=== PATIENT | female | born 1960 ===

== ENCOUNTER 2016-10-17 10:17 | Inpatient (IN) ==
[2016-10-17] MEDS ORDERED: ACETAMINOPHEN 325 MG TABLET PO PRN (11:08)
[2016-10-17] MEDS ORDERED: ONDANSETRON 4 MG/2 ML VIAL IV PRN (11:08)
[2016-10-17] MEDS ORDERED: GLUCAGON 1 MG VIAL IM PRN (11:08)
[2016-10-17] MEDS ORDERED: DEXTROSE 50% 25 GM/50 ML VIAL IV PRN (11:08)
--- NOTE | 2016-10-17 11:41 | EKG Report ---
Stationary ECG Study [facility] Test Date: 10/17/2016 11:41:15 AM Pat Name: DAVIN OLSON Department: Room: 533 Gender: F [employer] Supervisor: BRANDIE : 1960 Requested by: Kylee Fritz Order Number: [id number] Reading MD: SUDHEER BAUTISTA Intervals [place] Rate: 92 P: 59 NC: 166 QRS: 32 QRSD: 99 T: 47 QT: 361 QTc: 410 Interpretive Statements SINUS RHYTHM Electronically Signed On 10-17-16 11:46:46 CDT by SUDHEER BAUTISTA [email or web address]
[2016-10-17 12:01] LABS: Basophils # 0.1 10*3/uL (0.0-0.2); Basophils % 0.6 % (0.0-0.8); Eosinophils # 0.2 10*3/uL (0.0-0.87); Hemoglobin 7.7 GM/DL (12.0-16.0); Immature Granulocytes % 1.6 %; Immature Granulocytes Absolute 0.13 #; Lymphocytes # 1.5 10*3/uL (1.4-4.0); Lymphocytes % 19.3 % (21.3-54.2); Mean Corpuscular HGB Conc 30.8 GM/DL (32-36); Mean Corpuscular Hemoglobin 29 PG (27-34); Mean Corpuscular Volume 94.7 FL (87-102); Mean Platelet Volume 10.1 FL (9.6-12.0); Monocytes # 0.6 10*3/uL (0.11-0.8); Monocytes % 7.4 % (1.7-12.7); Neutrophils # 5.4 10*3/uL (1.4-7.4); Neutrophils % 69.1 % (38.7-73.9); Platelet Count 233 T/CUMM (130-400); Red Blood Count 2.64 MC/CUMM (3.8-5.5); White Blood Count 7.9 T/CUMM (4-12)
[2016-10-17 12:24] LABS: Albumin 2.1 G/DL (3.4-5.0); Bilirubin,Total 0.5 MG/DL (0.2-1.0); Calcium 8.5 MG/DL (8.5-10.1); Osmolality,Calculated 272.1 MOS/KG (273-304); Potassium 4.9 MMOL/L (3.5-5.1)
[2016-10-17] MEDS: INSULIN REGULAR 100 UNIT/ML SUBCUT SCH ×3 (12:26→21:01)
--- NOTE | 2016-10-17 12:56 | General Surg History&Physical ---
Assessment and Plan - Time spent with patient Time spent with patient: Greater than 30 minutes (1) Abscess of right thigh Status: Acute Assessment and plan: Begin IV antibiotics, wound care, and surgery tomorrow to drain/debride/culture. Current Visit: Yes (2) Abscess of left thigh Status: Acute Assessment and plan: IV antibiotics, debridement, drainage, wound care. Current Visit: Yes (3) Diabetic ulcer of heel Status: Acute Assessment and plan: Debridement, culture, and wound care; good diabetes management and offloading. She has left sided weakness from old CVA, so we will need to protect from trauma and pressure changes. Current Visit: Yes (4) Diabetic foot ulcer Status: Acute Current Visit: Yes (5) Hemodialysis status Status: Acute Assessment and plan: Fairly recent progression to HD. She dialyzes in [place]. We will ask nephrology here to follow with us perioperatively. Current Visit: Yes (6) Left-sided weakness Status: Acute Assessment and plan: Residual weakness from old CVA. We will need to prevent pressure changes, protect these areas, and fall prevention. PT/OT as tolerated. Current Visit: Yes History of Present Illness Chief complaint: Infected wounds of right and left thighs and left foot History of present illness: Ms. Rowland is a 55 year old female Allergies Allergy/AdvReac Type Severity Reaction Status Date / Time moxifloxacin AdvReac Severe ITCHING Verified 10/17/16 12:01 Medical,Surgical,& Family Hx - Medical History Cardio: History of: Cerebrovascular Disease, PVD, Cardiovascular Problems (low blood pressure) Neurology: History of: Cerebrovascular Accident, Peripheral Neuropathy Endocrine: History of: Diabetes Mellitus (IDDM) Renal: History of: Dialysis, Renal Failure Genitourinary: History of: Bladder Problem (incontinence) Musculoskeletal: History of: Musculoskeletal Problems (paralysis related to stroke) Other: History of: Skin Problems (chronic wounds) - Surgical History Cardiac Surgeries: Sugical HX of: Vascular Access Devices (Currently has subclavian dialysis catheters ) Thoracic Surgeries: Patient denies;: Organ Transplant - Social History Smoking Status: Never smoker Frequency of Alcohol Use: None Type of Drug Use: None Functional capacity: wheelchair bound Exam - Constitutional Vitals: Period Temp Pulse Resp BP Sys/English Pulse Ox Last 24 Hr 97.4 F 94 18 99/58 96 General appearance: no acute distress, over weight, disheveled - Head Head exam: Present: normocephalic - ENT Mouth exam: Present: normal voice, dry mucosa, other (Poor dentition) - Neck Neck exam: Present: trachea midline - Respiratory Respiratory exam: Present: clear to auscultation bilaterally - Cardiovascular Cardiovascular exam: Present: RRR - GI/Abdominal GI/Abdominal exam: Present: soft. Absent: guarding, tenderness - Extremities Exam Extremities exam: Present: other (Multiple contusions, superficial skin lesions and scabs of upper and lower extremities. Trace edema bilateral lower extremities. On the right inner thigh is a 15 x 10cm area of induration and erythema, with an 8 x 5cm ulceration present. The upper 2/3 has beefy friable granulation tissue present with foul odor and copious yellow drainage; the lower 1/3 has a fixed thick black eschar that is tender to touch. Some suture material is present centrally. There is contraction from the wound edges. It is extremely tender to touch but I can express no purulence nor do I see a specifice fluctuant mass. On the left inner thigh is a small, 1x1cm wound with Iodoform packing present; there is foul yellow drainge present. When removed, the wound has at least a 5cm cavity present. I can express no further drainage and see no necrotic material. It is too tender for her to allow me to explore this area. On the left lower extremity is a 3 x 4cm fixed dark heel eschar. No drainage is seen. At the left midfoot is a purpuric blistered area with adjacent 2x2cm ulceration some yellowish drainage present. She has chronic venous stasis skin changes of the lower extremities bilaterally. There is 1-2+ palpable DP pulses but deeply prominenent dependent rubor. ) - Neurological Exam Neurological exam: Present: alert, oriented X3, motor sensory deficit (Residual left sided weakness, abnormal sensory response, and delayed reflexes secondary to old CVA.) 12 point system: reviewed and no additional remarkable complaints except as stated - Constitutional Constitutional: Present: weakness, weight loss Hematologic/Lymphatic: Present: easy bruising (Since starting dialysis) Quality Measures - VTE Contraindication to Pharmacological VTE Prophylaxis: High Risk of Bleeding Results - Labs CBC & BMP: 10/17/16 11:37 10/17/16 11:37 Lab Results: I have reviewed the past 24 hour labs (H&H noted. Creatinine is 3.0 today; she is scheduled for dialysis on Friday. Potassium is normal.)
--- NOTE | 2016-10-17 15:10 | Nephrology Consult Note ---
History of Present Illness Chief complaint: End-stage renal disease History of present illness: Ms. Rowland is a 55 year old female who has been dialyzing approximately 1-1/2 months in the [place] hemodialysis unit. She is a long-standing diabetic and that is apparently the etiology of her end-stage renal disease. She has had outpatient care for left foot wound which is been chronic and has developed significant ulceration and wounds of both inner thighs. Plan is for debridement of those wounds tomorrow. Hematocrit is 25. She is not short of breath her chest is clear and her heart without rub or gallop. Her right chest dialysis catheter is not draining and exits the infraclavicular position. She is wearing boots over both feet and has no significant edema Impression end-stage renal disease #2 wounds #3 diabetes mellitus Plan: Hemodialysis tomorrow after surgery. If necessary we can transfuse packed red cells. We will go ahead and type and screen for those. Allergies Allergy/AdvReac Type Severity Reaction Status Date / Time moxifloxacin AdvReac Severe ITCHING Verified 10/17/16 12:01 Medical,Surgical,& Family Hx - Medical History Cardio: History of: Cerebrovascular Disease, PVD, Cardiovascular Problems (low blood pressure) Neurology: History of: Cerebrovascular Accident, Peripheral Neuropathy Endocrine: History of: Diabetes Mellitus (IDDM) Renal: History of: Dialysis, Renal Failure Genitourinary: History of: Bladder Problem (incontinence) Musculoskeletal: History of: Musculoskeletal Problems (paralysis related to stroke) Other: History of: Skin Problems (chronic wounds) - Surgical History Cardiac Surgeries: Sugical HX of: Vascular Access Devices (Currently has subclavian dialysis catheters ) Thoracic Surgeries: Patient denies;: Organ Transplant - Social History Smoking Status: Never smoker Frequency of Alcohol Use: None Type of Drug Use: None Review of Systems 12 point system: reviewed and no additional remarkable complaints except as stated Exam - Vital Signs Vital signs: Period Temp Pulse Resp BP Sys/English Pulse Ox Last 24 Hr 97.4 F 94 18 99/58 96 - General Appearance General appearance: well-developed, well-nourished, appears started age EENT: ATNC Neck: no JVD, no thyromegaly, no carotid bruit, supple Respiratory: no kyphosis, no scoliosis Cardiology: no murmurs, no rub, no gallops, no edema, regular rate, regular rhythm, normal S1, normal S2 Gastrointestinal: normoactive bowel sounds Integumentary: no rash, warm and dry Neurologic: no focal deficit, no asterixis, alert and oriented x3, reflexes 2+ and symmetric, gait normal, strength 5/5 Musculoskeletal: no deformities, no erythema, no cyanosis, no clubbing Psychiatric: mood/affect appropriate (Wounds as described in H&P. Dialysis cath R infraclavicular area), cooperative Results - Labs CBC & BMP: 10/17/16 11:37 10/17/16 11:37 Lab Results: I have reviewed the past 24 hour labs Assessment and Plan - Time spent with patient Time spent with patient: Greater than 30 minutes (1) ESRD (end stage renal disease) on dialysis Status: Acute Current Visit: Yes (2) Diabetic foot ulcer Status: Acute Current Visit: Yes (3) Anemia Status: Acute Assessment and plan: Type and screen. Transfuse on dialysis if necessary Current Visit: Yes Specialty Discharge - Follow Up or Referrals - Speciality Discharge Instructions Nephrology Instructions: Hemodialysis tomorrow.
[2016-10-17] MEDS: DESITIN 4OZ/NYSTATIN 15 GRAM MIXTURE PASTE TOP SCH (21:01)
[2016-10-18] MEDS ORDERED: ceFAZolin 1,000 MG VIAL IM ONE (06:00)
[2016-10-18] MEDS: INSULIN REGULAR 100 UNIT/ML SUBCUT SCH ×4 (07:19→21:48)
[2016-10-18] MEDS: PANTOPRAZOLE 40 MG TABLET PO SCH (08:05)
[2016-10-18] MEDS: DESITIN 4OZ/NYSTATIN 15 GRAM MIXTURE PASTE TOP SCH ×2 (08:05→21:49)
[2016-10-18] MEDS ORDERED: SODIUM CHLORIDE 0.9% 250 ML IV PRN (08:56)
--- NOTE | 2016-10-18 08:56 | Nephrology Progress Note ---
Nephrology - PN: Subj Interval history: Ms. Rowland is seen in follow-up of her end-stage renal disease. She is to undergo debridement of several wounds today and will have dialysis afterwards. Her hematocrit is 25 and there will be expected blood loss. We will plan to give 2 units packed red cells during hemodialysis. Chest is clear and she is in no distress. Exam (PN)-Nephrology - Vital Signs Vital signs: Period Temp Pulse Resp BP Sys/English Pulse Ox Last 24 Hr 97.3 F-98.9 F 90-94 16-18 94-116/58-69 93-100 - Lab 10/17/16 11:37 10/17/16 11:37 Most recent lab results Calcium 8.5 MG/DL (8.5-10.1) 10/17/16 11:37 Assessment and Plan (1) ESRD (end stage renal disease) on dialysis Status: Acute Current Visit: Yes (2) Diabetic foot ulcer Status: Acute Current Visit: Yes (3) Anemia Status: Acute Assessment and plan: Type and screen. Transfuse on dialysis if necessary Current Visit: Yes
[2016-10-18] MEDS ORDERED: DEXTROSE 50% 25 GM/50 ML VIAL IV ONE ×2 (11:40→11:55)
[2016-10-18] MEDS ORDERED: BUPIVACAINE 0.25% 50 ML VIAL ONE (11:47)
[2016-10-18] MEDS ORDERED: PROPOFOL 200 MG/20 ML VIAL IV ONE (12:05)
[2016-10-18] MEDS ORDERED: PHENYLEPHRINE 20 MG/250 ML PREMIX IV ONE (12:05)
[2016-10-18] MEDS ORDERED: LIDOCAINE 2% 5 ML VIAL ONE (12:05)
--- NOTE | 2016-10-18 13:05 | Operative Note ---
Date of procedure: 10/18/16 Pre-op diagnosis: Diabetic ulcerations right and left lower extremities Post-op diagnosis: same Procedure: Operative note: Preoperative diagnosis: 1. Diabetic ulceration right medial thigh 2. Diabetic ulceration left medial thigh 3. Diabetic ulceration fifth metatarsal head lateral part of the left foot 4. Diabetic ulceration of the heel left 5. Diabetic ulceration plantar surface left foot Postoperative diagnosis: Same Procedure: 1. Excisional debridement skin subcutaneous tissue right medial thigh 2. Excisional debridement of skin subcutaneous tissue left medial thigh 3. Excisional debridement of skin subcutaneous tissue ulcer fifth metatarsal head lateral left foot 4. Excisional debridement of skin subcutaneous tissue left heel 5. Excisional debridement of skin subcutaneous tissue ulcer plantar surface left foot Surgeon Dr. Ramos Manager [employer] Kylee Fritz, [employer]ANDW[employer] MACHINE OPERATOR ACNP Anesthesia was managed anesthetic care with local infiltration Brief history: 55-year-old diabetic female dialysis patient with multiple wounds on the lower extremities with dark eschars and drainage from these wound beds. We brought her in for some IV antibiotics and taken to surgery to get these debrided so we can start some proper wound care. Procedure: With patient in supine position prepped and draped in a sterile fashion timeout and antibiotics completed we then took several pre-debridement measurements. 1. The right thigh 6 x 7 x 0.5 cm. 2. Left thigh 1 x 0.5 x 0.5 cm. 3. Left lateral foot fifth metatarsal head 1 x 1 cm. 4. Left heel 3.5 x 4 cm. 5. Left foot plantar surface 2 x 3 cm. At this point I began to approach the area after we infiltrated everything with a local anesthetic the right thigh wound itself. Good bit of necrotic tissue in the lower edge of it at this time. I took the knife begin to debride this dark eschar away along with the skin edge and some of the deep subcutaneous tissue. We debrided the deep tissue at this point with scissors to take tissue for culture. We encountered a couple of veins that had clot in on that when pressed on the thigh would evacuate the clots. Once they were out I went ahead and oversewed these 3 vein areas with 3-0 Vicryl suture in order to keep any backbleeding from occurring. Once I had debrided this wound pretty thoroughly with a good clean base at this time we now have a post debridement wound 6.5 x 7.2 x 1.5 cm in size. Next moved to the left thigh wound which has some tunneling underneath it. We placed a hemostat into that and opened it up so that we can get to it and drops into the subtenons tissue area. We took a knife and excised the edges of this and carefully debrided all around to get this tract completely out. We took some deep tissue from this for cultures. We then debrided some deep subcutaneous tissue and utilized cauterization controlling bleeding. Washed and irrigated without any problems. Once that was completed we have a post debridement wound that is 3.3 x 1.2 x 7 cm. At that point we dressed it area. That being completed we went down to the left foot at this point went to the fifth metatarsal head that lateral aspect where we took the knife and excised the eschar that was present there. Some bursal material was present in this area we debrided that away with some drainage from it. We carefully debrided the skin edges and the subcutaneous tissue from around this wound edge. Once we had finished we had a wound that is 1 x 1 x 0.2 cm. We next moved to the plantar surface of the foot where we took the knife and shave that plantar ulcer of the dark eschar away debriding skin and deep subcutaneous tissue without exposing any tendon or fascia at this time. Took the scissors to clean up some of the fatty tissue from his age. Once that was completed we have a wound now that is 3 x 4 x 0.4 cm. That being completed we move next to the heel where we had to elevate the leg and take a knife and carefully debride this dark necrotic eschar away trying not to expose any tendon at this time debriding the skin and the deep subtenons tissue. We debrided as best we could because it is hard to see the like we got most of it from his age. We now have a wound that 7 x 6 x 0.9 cm. At this point would begin to worsen irrigate up the wound beds and dressed some mild using the Aquacel Ag and Mepitel as well as little Surgicel insert wound to controlling bleeding at this time. Bulky dressings were placed on the thigh wounds and the foot was wrapped with cast padding Covan to the knee. Patient was next taken to recovery. Estimated blood loss 20 cc Sponge count correct 2 Drains none Complications none Condition stable satisfactory Anesthesia: MAC, local (0.25% Marcaine plain mixed [id number] 1% Xylocaine plain) Surgeon / Physician: Frederick Ramos Manager [employer]: Kylee Fritz Estimated blood loss: other (20 cc) Specimens: other (Tissue for culture) Condition: stable Disposition: floor Results - Labs CBC & BMP: 10/17/16 11:37 10/17/16 11:37 Discharge Plan - Discharge Medications No Action traMADol TAB [Ultram] 50 mg PO BID PRN PRN Reason: Pain Folic Acid/Vit B Complex and C [Folbee Plus Tablet] 5 mg PO DAILY Insulin Lispro [HumaLOG] See Protocol SUBCUT TID W/MEALS Amitriptyline [Elavil] 50 mg PO BID Oxycodone HCl/Acetaminophen [Percocet 10-325 mg Tablet] 1 each PO Q4H PRN PRN Reason: Pain Levothyroxine Tab [Synthroid Tab] 50 mcg PO DAILY@0700 Amiodarone Tab [Cordarone Tab] 200 mg PO BID - Follow Up or Referral - Forms/Instructions
[2016-10-18] MEDS ORDERED: HYDROmorphone 2 MG/1 ML VIAL IV PRN (13:06)
[2016-10-18] MEDS: HYDROmorphone 2 MG/1 ML VIAL IV PRN ×2 (13:15→13:20)
--- NOTE | 2016-10-18 13:15 | Anesthesia Post-Op ---
Anesthesia Post OP - Post Ansesthetic Evaluation Patient seen in post op: Yes Resp: within normal limits CV: within normal limits Mental: within normal limits Temp: within normal limits [id number]: within normal limits Nausea and Vomiting: within normal limits Pain: within normal limits
[2016-10-18] MEDS ORDERED: ONDANSETRON 4 MG/2 ML VIAL IV PRN (13:18)
[2016-10-18] MEDS ORDERED: MIDAZOLAM 2 MG/2 ML VIAL ONE (13:18)
[2016-10-18] MEDS ORDERED: HEPARIN 10,000 UNIT/10 ML VIAL IV SCH (14:30)
[2016-10-18] MEDS: INSULIN LISPRO 100 UNIT/ML SUBCUT SCH (16:05)
[2016-10-18] MEDS: CLINDAMYCIN INJ 600 MG in PREMIX 1 EACH IV SCH (17:28)
[2016-10-18 20:08] LABS: Hematocrit 26.2 VOL% (35.7-47.0); Hemoglobin 8.4 GM/DL (12.0-16.0)
[2016-10-18] MEDS: AMITRIPTYLINE 50 MG TABLET PO SCH (21:48)
[2016-10-18] MEDS: ceFAZolin 2,000 MG in PREMIX 1 EACH IV SCH (21:49)
[2016-10-18] MEDS: AMIODARONE 200 MG TABLET PO SCH (21:49)
[2016-10-19] MEDS: CLINDAMYCIN INJ 600 MG in PREMIX 1 EACH IV SCH ×4 (01:20→22:28)
[2016-10-19] MEDS: ceFAZolin 2,000 MG in PREMIX 1 EACH IV SCH (03:00)
[2016-10-19 05:05] LABS: Basophils % 0.6 % (0.0-0.8); Eosinophils # 0.1 10*3/uL (0.0-0.87); Eosinophils % 2.7 % (0.00-10.9); Hematocrit 23.2 VOL% (35.7-47.0); Hemoglobin 7.6 GM/DL (12.0-16.0); Immature Granulocytes Absolute 0.05 #; Lymphocytes # 1.4 10*3/uL (1.4-4.0); Mean Corpuscular HGB Conc 32.8 GM/DL (32-36); Mean Corpuscular Hemoglobin 30 PG (27-34); Mean Corpuscular Volume 89.9 FL (87-102); Mean Platelet Volume 10.3 FL (9.6-12.0); Monocytes # 0.5 10*3/uL (0.11-0.8); Monocytes % 9.5 % (1.7-12.7); Neutrophils # 3.2 10*3/uL (1.4-7.4); Neutrophils % 60.2 % (38.7-73.9); Platelet Count 178 T/CUMM (130-400); Red Blood Count 2.58 MC/CUMM (3.8-5.5); Red Cell Distribution Width 15.7 % (9.3-17.3); White Blood Count 5.2 T/CUMM (4-12)
[2016-10-19 05:36] LABS: Calcium 7.9 MG/DL (8.5-10.1); Osmolality,Calculated 266.4 MOS/KG (273-304); Potassium 4.5 MMOL/L (3.5-5.1)
[2016-10-19] MEDS: LEVOTHYROXINE 50 MCG TABLET PO SCH (06:04)
[2016-10-19] MEDS: INSULIN REGULAR 100 UNIT/ML SUBCUT SCH ×4 (07:55→20:22)
[2016-10-19] MEDS: INSULIN LISPRO 100 UNIT/ML SUBCUT SCH ×3 (08:01→16:42)
[2016-10-19] MEDS: MULTIVITAMIN (BEROCCA) TABLET PO SCH (08:02)
[2016-10-19] MEDS: AMIODARONE 200 MG TABLET PO SCH ×2 (08:02→20:19)
[2016-10-19] MEDS: PANTOPRAZOLE 40 MG TABLET PO SCH (08:02)
[2016-10-19] MEDS: AMITRIPTYLINE 50 MG TABLET PO SCH ×2 (08:02→20:18)
[2016-10-19] MEDS: DESITIN 4OZ/NYSTATIN 15 GRAM MIXTURE PASTE TOP SCH ×2 (08:04→20:19)
[2016-10-19 08:31] LABS: Hematocrit 25.3 VOL% (35.7-47.0); Hemoglobin 8.1 GM/DL (12.0-16.0)
[2016-10-19] MEDS ORDERED: SKIN HEALING OINT (AQUAPHOR) 50 GM TUBE TOP PRN (11:13)
--- NOTE | 2016-10-19 11:41 | Event Note ---
General Surgery Progress Note Chief complaint This patient is a 55-year-old woman admitted with multiple wounds that were treated with debridement and drainage of abscesses by Dr. Brunson on 10/18/2016 Interval history No events overnight. Patient feels well. Initial cultures show gram-negative rods. Physical exam Afebrile with normal vital signs Right thigh wound has some erythema around the blanches and it still indurated. The base of the wound has some sloughing tissue and does not have any red granulation tissue. The left thigh wound looks much more red and healthy with no residual infection. The left foot wound is healing well. Labs Reviewed Imaging None Assessment and plan Continue antibiotics and wound care
[2016-10-19] MEDS: COLLAGENASE OINT 30 GM TUBE TOP SCH (12:36)
[2016-10-19] MEDS: BACITRACIN OINT 0.9 GM PACK TOP SCH (12:36)
[2016-10-19] MEDS: SODIUM HYPOCHLORITE 0.25% IRRIG 473 ML BOTTLE TOP SCH (12:36)
--- NOTE | 2016-10-19 14:57 | Nephrology Progress Note ---
Nephrology - PN: Subj Interval history: She denies shortness of breath or chest pain. No GI symptoms. Exam (PN)-Nephrology - Vital Signs Vital signs: Period Temp Pulse Resp BP Sys/English Pulse Ox Last 24 Hr 97.0 F-99.0 F 87-103 18-20 95-115/50-64 95-100 Exam: ENT: Normal Cardiovascular: Regular rate and rhythm. No murmur rub or gallop Lungs: Clear Extremities: 1+ edema - Lab 10/19/16 08:12 10/19/16 04:02 Most recent lab results Calcium 7.9 MG/DL (8.5-10.1) L 10/19/16 04:02 Assessment and Plan (1) ESRD (end stage renal disease) on dialysis Status: Acute Assessment and plan: 55-year-old woman with: * ESRD. Dialyzed yesterday * Diabetes mellitus * Wound. Managed by surgery Current Visit: Yes (2) Diabetes mellitus Status: Acute Current Visit: Yes (3) Abscess of left thigh Status: Acute Current Visit: Yes (4) Abscess of right thigh Status: Acute Current Visit: Yes
[2016-10-19] MEDS: CIPROFLOXACIN 500 MG TABLET PO SCH (20:18)
[2016-10-19] MEDS: CLINDAMYCIN 300 MG CAPSULE PO SCH ×2 (20:21→21:20)
[2016-10-19] MEDS ORDERED: CLINDAMYCIN 300 MG CAPSULE PO SCH (21:00)
[2016-10-20] MEDS: LEVOTHYROXINE 50 MCG TABLET PO SCH (06:04)
[2016-10-20] MEDS: CLINDAMYCIN 300 MG CAPSULE PO SCH ×3 (06:06→22:42)
[2016-10-20] MEDS: INSULIN REGULAR 100 UNIT/ML SUBCUT SCH ×4 (07:28→20:19)
[2016-10-20] MEDS: INSULIN LISPRO 100 UNIT/ML SUBCUT SCH ×3 (07:28→16:25)
[2016-10-20] MEDS: BACITRACIN OINT 0.9 GM PACK TOP SCH ×2 (07:29→08:09)
[2016-10-20] MEDS: MULTIVITAMIN (BEROCCA) TABLET PO SCH ×2 (07:29→08:09)
[2016-10-20] MEDS: AMITRIPTYLINE 50 MG TABLET PO SCH ×3 (07:29→20:18)
[2016-10-20] MEDS: PANTOPRAZOLE 40 MG TABLET PO SCH ×2 (07:30→08:09)
[2016-10-20] MEDS: AMIODARONE 200 MG TABLET PO SCH ×3 (07:30→20:19)
[2016-10-20] MEDS: CIPROFLOXACIN 500 MG TABLET PO SCH ×2 (08:09→20:18)
[2016-10-20] MEDS: DESITIN 4OZ/NYSTATIN 15 GRAM MIXTURE PASTE TOP SCH ×2 (08:09→21:13)
[2016-10-20] MEDS: SODIUM HYPOCHLORITE 0.25% IRRIG 473 ML BOTTLE TOP SCH (08:09)
[2016-10-20] MEDS: COLLAGENASE OINT 30 GM TUBE TOP SCH (08:10)
--- NOTE | 2016-10-20 12:23 | Event Note ---
General Surgery Progress Note Chief complaint This patient is a 55-year-old woman admitted with multiple wounds that were treated with debridement and drainage of abscesses by Dr. Ramos on 10/18/2016 Interval history No events overnight. Patient feels well. Cultures have grown Pseudomonas and E. coli both of which are sensitive to ciprofloxacin. Physical exam Afebrile with normal vital signs Right thigh wound has some erythema around the blanches and it still indurated. The base of the wound has some sloughing tissue and does not have any red granulation tissue. The left thigh wound looks much more red and healthy with no residual infection. The left foot wound has a little bit more sloughing tissue again today. Labs Reviewed Imaging None Assessment and plan Continue current antibiotics and wound care
--- NOTE | 2016-10-20 14:21 | Nephrology Progress Note ---
Nephrology - PN: Subj Interval history: No new symptoms today. Exam (PN)-Nephrology - Vital Signs Vital signs: Period Temp Pulse Resp BP Sys/English Pulse Ox Last 24 Hr 97.5 F-98.7 F 84-94 12-19 123-131/61-77 94-98 Exam: ENT: Normal Cardiovascular: Regular rate and rhythm. No murmur rub or gallop Lungs: Clear Extremities: 1+ edema - Lab 10/19/16 08:12 10/19/16 04:02 Most recent lab results Calcium 7.9 MG/DL (8.5-10.1) L 10/19/16 04:02 Assessment and Plan (1) ESRD (end stage renal disease) on dialysis Status: Acute Assessment and plan: 55-year-old woman with: * ESRD. Dialysis Friday * Diabetes mellitus * Wound. Managed by surgery Current Visit: Yes (2) Diabetes mellitus Status: Acute Current Visit: Yes (3) Abscess of left thigh Status: Acute Current Visit: Yes (4) Abscess of right thigh Status: Acute Current Visit: Yes
[2016-10-21] MEDS: CLINDAMYCIN 300 MG CAPSULE PO SCH ×2 (06:10→14:09)
[2016-10-21] MEDS: LEVOTHYROXINE 50 MCG TABLET PO SCH (06:10)
--- NOTE | 2016-10-21 08:26 | Nephrology Progress Note ---
Nephrology - PN: Subj Interval history: No Ms. Rowland is seen in follow-up of her end-stage renal disease. She is stable doing well following debridement of her multiple wounds on Friday the . Her chest is clear. She will have dialysis today. She is eating well and recovering well. Exam (PN)-Nephrology - Vital Signs Vital signs: Period Temp Pulse Resp BP Sys/English Pulse Ox Last 24 Hr 97.9 F-98.6 F 84-91 14-18 104-144/55-77 97-100 - Lab 10/19/16 08:12 10/19/16 04:02 Most recent lab results Calcium 7.9 MG/DL (8.5-10.1) L 10/19/16 04:02 Assessment and Plan (1) ESRD (end stage renal disease) on dialysis Status: Acute Current Visit: Yes (2) Diabetic foot ulcer Status: Acute Current Visit: Yes (3) Anemia Status: Acute Assessment and plan: Type and screen. Transfuse on dialysis if necessary Current Visit: Yes
[2016-10-21] MEDS: INSULIN REGULAR 100 UNIT/ML SUBCUT SCH ×4 (08:35→21:54)
[2016-10-21] MEDS: INSULIN LISPRO 100 UNIT/ML SUBCUT SCH ×3 (08:35→16:36)
[2016-10-21] MEDS: CIPROFLOXACIN 500 MG TABLET PO SCH ×2 (08:36→20:52)
[2016-10-21] MEDS: MULTIVITAMIN (BEROCCA) TABLET PO SCH (08:36)
[2016-10-21] MEDS: BACITRACIN OINT 0.9 GM PACK TOP SCH (08:36)
[2016-10-21] MEDS: AMIODARONE 200 MG TABLET PO SCH ×2 (08:37→20:53)
[2016-10-21] MEDS: SODIUM HYPOCHLORITE 0.25% IRRIG 473 ML BOTTLE TOP SCH (08:37)
[2016-10-21] MEDS: COLLAGENASE OINT 30 GM TUBE TOP SCH (08:37)
[2016-10-21] MEDS: DESITIN 4OZ/NYSTATIN 15 GRAM MIXTURE PASTE TOP SCH ×2 (08:37→20:52)
[2016-10-21] MEDS: AMITRIPTYLINE 50 MG TABLET PO SCH ×2 (08:37→20:52)
[2016-10-21] MEDS: DOCUSATE SODIUM 100 MG CAPSULE PO PRN (08:37)
[2016-10-21] MEDS: PANTOPRAZOLE 40 MG TABLET PO SCH (08:37)
--- NOTE | 2016-10-21 18:20 | General Surgery Progress Note ---
Assessment and Plan - Time spent with patient Time spent with patient: Less than 30 minutes (1) Abscess of right thigh Status: Acute Assessment and plan: Begin IV antibiotics, wound care, and surgery tomorrow to drain/debride/culture. 10/21/2016. Abscesses of bilateral thighs, stable postop I&D with debridement. She had Pseudomonas present in all wounds. These wounds showed little signs of clinical healing at this point, however there does not appear to be any gross amount of no necrotic tissue. Will plan to modify her wound care in anticipation of discharge, and hopefully will see some signs of healing. We will need to add acetic acid irrigations, and continue at this point with Silvadene topically. We will also DC clindamycin, and continue her Cipro p.o. The rash on her upper torso is likely related to antibiotics, so if this does not improve we may need to adjust the Cipro. There was initially some consideration that this might represent calciphylaxis of the thigh wound, however her calcium levels are not within normal limits, so will just continue with watchful waiting, hopeful that that is not the case. This patient also clearly has end-stage renal disease, and I am uncertain as to why she has not already been enrolled in Medicare. Will ask social media developer to investigate this prior to discharge. Certainly she does need a new wheelchair, as this is likely the source of her new diabetic ulcers on the left heel and left midfoot. Current Visit: Yes (2) Abscess of left thigh Status: Acute Assessment and plan: IV antibiotics, debridement, drainage, wound care. Current Visit: Yes (3) Diabetic ulcer of heel Status: Acute Assessment and plan: Debridement, culture, and wound care; good diabetes management and offloading. She has left sided weakness from old CVA, so we will need to protect from trauma and pressure changes. Current Visit: Yes (4) Diabetic foot ulcer Status: Acute Current Visit: Yes (5) Hemodialysis status Status: Acute Assessment and plan: Fairly recent progression to HD. She dialyzes in [place]. We will ask nephrology here to follow with us perioperatively. Current Visit: Yes (6) Left-sided weakness Status: Acute Assessment and plan: Residual weakness from old CVA. We will need to prevent pressure changes, protect these areas, and fall prevention. PT/OT as tolerated. Current Visit: Yes Subjective Patient reports: Present: still having pain (She complains of pain primarily of the right thigh. Also new rash of the upper torso.), tolerating a regular diet Exam - Constitutional Vitals: Period Temp Pulse Resp BP Sys/English Pulse Ox Last 24 Hr 98.1 F-98.6 F 86-91 14-18 104-144/55-69 96-100 General appearance: no acute distress, over weight, disheveled, other (She is awake, alert and sitting up in bed, eating dinner, with her present.) - Respiratory Respiratory exam: Absent: rales, stridor, wheezes - Cardiovascular Cardiovascular exam: Present: RRR - Extremities Exam Extremities exam: Present: other (Right medial thigh wound with moderate drainage. There is pink tissue at the base, and no new ischemic change. Periwound skin is still a bit indurated, and very tender to touch. Left medial thigh wound is much smaller, clean, and mildly indurated. There is no purulence , no new erythema. Her left foot and heel wounds were not evaluated at this visit.) Results - Labs CBC & BMP: 10/19/16 08:12 10/19/16 04:02 Lab Results: I have reviewed the past 24 hour labs (Cultures revealed Pseudomonas.) Quality Measures - VTE Contraindication to Mechanical VTE Prophylaxis: Local Inflammation
[2016-10-22] MEDS: LEVOTHYROXINE 50 MCG TABLET PO SCH (06:32)
--- NOTE | 2016-10-22 08:31 | Nephrology Progress Note ---
Nephrology - PN: Subj Interval history: Ms. Rowland is seen in follow-up of her end-stage renal disease. She had dialysis yesterday and did well. She is doing well with wound care. Will continue to support with Friday dialysis. Chest is clear and there is no edema. Exam (PN)-Nephrology - Vital Signs Vital signs: Period Temp Pulse Resp BP Sys/English Pulse Ox Last 24 Hr 97 F-98.4 F 85-90 18-20 98-126/56-66 96-100 - Lab 10/19/16 08:12 10/19/16 04:02 Most recent lab results Calcium 7.9 MG/DL (8.5-10.1) L 10/19/16 04:02 Assessment and Plan (1) ESRD (end stage renal disease) on dialysis Status: Acute Current Visit: Yes (2) Diabetic foot ulcer Status: Acute Current Visit: Yes (3) Anemia Status: Acute Assessment and plan: Type and screen. Transfuse on dialysis if necessary Current Visit: Yes
[2016-10-22] MEDS: INSULIN REGULAR 100 UNIT/ML SUBCUT SCH ×2 (09:02→11:44)
[2016-10-22] MEDS: INSULIN LISPRO 100 UNIT/ML SUBCUT SCH ×2 (09:02→11:44)
[2016-10-22] MEDS: MULTIVITAMIN (BEROCCA) TABLET PO SCH (09:03)
[2016-10-22] MEDS: PANTOPRAZOLE 40 MG TABLET PO SCH (09:03)
[2016-10-22] MEDS: CIPROFLOXACIN 500 MG TABLET PO SCH (09:04)
[2016-10-22] MEDS: BACITRACIN OINT 0.9 GM PACK TOP SCH (09:04)
[2016-10-22] MEDS: AMIODARONE 200 MG TABLET PO SCH (09:04)
[2016-10-22] MEDS: DESITIN 4OZ/NYSTATIN 15 GRAM MIXTURE PASTE TOP SCH (09:04)
[2016-10-22] MEDS: COLLAGENASE OINT 30 GM TUBE TOP SCH (09:04)
[2016-10-22] MEDS: AMITRIPTYLINE 50 MG TABLET PO SCH (09:04)
[2016-10-22] MEDS: SODIUM HYPOCHLORITE 0.25% IRRIG 473 ML BOTTLE TOP SCH (09:04)
[2016-10-22] MEDS: DOCUSATE SODIUM 100 MG CAPSULE PO PRN (09:04)
--- NOTE | 2016-10-22 09:13 | Discharge Summary ---
Hospital Course - Hospital Course Hospital Course: 10/22/2016. Discharge summary This 55-year-old white female was admitted from the office after presenting with worsening malodorous ulcerations of bilateral thigh wounds. She had recently (in the past 2 months) been placed on hemodialysis in her home town of [place]. These wounds reportedly occurred following hospitalization there, and was apparently due to failed attempted tunneled dialysis catheters on the right and left thighs. She also had new diabetic ulcerations of the left foot and left heel. On presentation to the office, she was noted to have foul- smelling wounds of bilateral thighs and thick fixed black eschars of the left midfoot, left lateral foot, and left heel. We admitted the patient for outpatient debridement and drainage of the thigh abscesses and left foot eschar. IV Teflaro was begun. However with her dialysis state, we felt that she needed a nephrology consult. Dr. Mike Peraza was consulted, felt she needed hemodialysis prior to surgery, and this was performed. She was taken to surgery on 10/18/2016, where the above areas were drained and debrided. Of note there was thrombus and infected old vein removed from the right thigh. These areas were debrided and cultured, and local wound care started. She tolerated hemodialysis well on October 19 and again on October 21. Her final culture results have shown Pseudomonas, sensitive to Cipro. This is the only organism that was found on her cultures. 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 The medial left thigh wound is clean and appears to be granulating. The left midfoot left lateral foot and left heel wounds are also clean and remain moist. There is no sign of advancing cellulitis, the abscess areas all appear to be drained, and she is stable medically. Her wound cultures can be addressed now with p.o. Cipro and will also add acetic acid irrigations and topical Silvadene with her dressing changes, which will now need to be performed daily. We have supposed spoken with social media strategist regarding her insurance situation, finding that she does not seem to be eligible for Medicare. With that information, we will continue to try to get her a new wheelchair or at least enhance the padding on her own chair. As this was the likely source for the diabetic ulcerations on the left foot. We will get [facility] reestablished for her wound care and surveillance. We will have her resume all her previous home medications, as well as her home dialysis in the [facility]. We will plan to follow her up in our office in 3-4 weeks unless there are problems. - Time spent with patient Time with patient DS: Greater than 30 minutes Diagnosis - Discharge Diagnosis (1) Abscess of right thigh Status: Acute (2) Abscess of left thigh Status: Acute (3) Diabetic ulcer of heel Status: Acute (4) Diabetic foot ulcer Status: Acute (5) Hemodialysis status Status: Acute (6) Left-sided weakness Status: Acute Specialty Discharge - Follow Up or Referrals Follow up with: Frederick Ramos MD [Physician] - (3-4 week) Discharge Plan - Discharge Data Disposition: Home Health Service Condition at Discharge: Stable Discharge Diet: diabetic diet Activity: other (Avoid prolonged sitting with legs dependent position. Be sure that wheelchair foot rest is padded. Be sure to wear heel boots.) Hygiene: may shower Weight Bearing at Discharge: other (See activity tab above) Contact your physician if you experience:: fever over 101, Redness or swelling, Nausea/Vomiting, Shortness of breath, Bleeding Wound / Dressing Care Instructions: New wound care instructions-please send a copy with the patient and also to [facility]. Daily care to bilateral thigh wounds and right lower extremity wound: Wash all areas daily using Hibiclens and saline soaked gauze. Lather well, squeeze lather onto wounds, gently dab the center of the wound, and wipe toward the periwound skin, then wipe clean. Rinse with additional saline. Pat dry. Irrigate all areas with 10 mL of acetic acid solution to each area. Apply Silvadene to ABD pads in place over the right thigh, left heel &left lateral foot wounds. For the right thigh wound, you may use 4x4 gauze and secure edges with tape. Aquaphor or other skin moisturizer to remainder of left foot and leg. WRAP left lower extremity from base of toes to the popliteal space with overlapping layers COTTON cast padding. Do not use Kerlix roll. Secure with coban. Foam heel protection boots at all times. - Discharge Medications New Acetic Acid 0.25% Irrigation 1,000 ml IRRIG BID #10 ml Ciprofloxacin Tab [Cipro Tab] 500 mg PO Q12HR #14 tablet Collagenase Oint [Santyl Oint] 1 applic TOP DAILY #1 applic Silver Sulfadiazine 1% Cream [Silvadene 1% Cream] 1 applic TOP DAILY #400 gm Skin Healing Oint (Aquaphor) [Aquaphor] 1 applic TOP PRN PRN #1 applic PRN Reason: Dry Skin Continue traMADol TAB [Ultram] 50 mg PO BID PRN PRN Reason: Pain Folic Acid/Vit B Complex and C [Folbee Plus Tablet] 5 mg PO DAILY Insulin Lispro [HumaLOG] See Protocol SUBCUT TID W/MEALS Amitriptyline [Elavil] 50 mg PO BID Levothyroxine Tab [Synthroid Tab] 50 mcg PO DAILY@0700 Amiodarone Tab [Cordarone Tab] 200 mg PO BID Changed Oxycodone HCl/Acetaminophen [Percocet 10-325 mg Tablet] 1 each PO Q6-8H PRN # 30 PRN Reason: Pain Moderate To Severe (4-10) - Follow Up or Referral - Forms/Instructions Exam - Constitutional Vitals: Period Temp Pulse Resp BP Sys/English Pulse Ox Last 24 Hr 97 F-98.4 F 85-90 18-20 98-126/56-66 96-100 General appearance: no acute distress, over weight - Head Head exam: Present: normocephalic - Respiratory Respiratory exam: Present: clear to auscultation bilaterally - Cardiovascular Cardiovascular exam: Present: regular rate and rhythm - GI/Abdominal GI/Abdominal exam: Present: hypoactive bowel sounds - Extremities Exam Extremities exam: Present: other (Right thigh wound is moist with moderate periwound induration but no advancing erythema. Base is slightly pink. There is no gross purulence or ischemic tissue. Left medial thigh wound is clean without purulence. There is pink tissue at the base. There is no unusual induration. Left lateral foot wound is a bit dry, however upon gentle manipulation there is a good bleeding base here. Left midfoot wound is clean with fatty tissue exposed and the base is clean and pink. Left heel wound is also clean down to the fatty level and there is no new ischemic change. Lower left extremity without mottling or pallor. There is no edema present.) Discharge Results Procedures and tests throughout hospitalization: Pending Orders 10/18/16 Tissue (Biopsy) Culture and GS Routine Labs on day of discharge: Labs from last 24 hours 10/22/16 10/21/16 10/21/16 07:14 20:28 12:17 POC Glucose 119 H 118 H 110 H Preliminary micro results at discharge 10/18/16 Unknown Tissue Culture - Preliminary Thigh - Right Pseudomonas aeruginosa Gram Negative Rods DS: Provider Date of admission: 10/17/16 10:42 Primary care physician: . No PCP Attending physician on admission: Frederick Ramos MD Consults: 10/17/16 11:10 Consult to Physician [CONS] Routine Comment: Nephrology family and consumer sciences professor Consulting Provider: Frederick Peraza Person Notified: aware Consult Notification Comment: Dialysis patient from [place] who needs surgery debridement/ I&D tomorrow 10/17/16 11:12 Consult to Anesthesiology [CONS] Routine Consulting Provider: Reason for Anesthesiology: Pre-op Clearance 10/21/16 09:35 Consult to Case Mgmt/Social Srvs [CONS] Routine Reason for Case Mgmt/Social Srvs: Equipment Consult Comment: wheelchair 10/21/16 18:16 Consult to Case Mgmt/Social Srvs [CONS] Routine Reason for Case Mgmt/Social Srvs: Discharge Planning Home Health Consult Comment: [facility]establish with [facility] Discharging clinician: Kylee Fritz CNP, R
[2016-10-22 10:05] VITALS: BP 149/86
== END 2016-10-22 12:55 | disposition home health service (06) | DRG 380 ==
LOC: N.5E 10:42
PROVIDERS: ADMIT Specialist; ATTEND Specialist

== ENCOUNTER 2017-02-06 16:34 | Inpatient (IN) ==
[2017-02-06] MEDS ORDERED: ALUMINUM/MAGNES/SIMETH MAX STR 30 ML UDCUP PO PRN (16:37)
[2017-02-06] MEDS ORDERED: ONDANSETRON 4 MG/2 ML VIAL IV PRN (16:37)
[2017-02-06] MEDS ORDERED: HYDROmorphone 2 MG/1 ML VIAL IV PRN (16:37)
[2017-02-06] MEDS ORDERED: ACETAMINOPHEN 325 MG TABLET PO PRN (16:37)
[2017-02-06] MEDS ORDERED: GLUCAGON 1 MG VIAL IM PRN (16:37)
[2017-02-06] MEDS ORDERED: DEXTROSE 50% 25 GM/50 ML VIAL IV PRN (16:37)
--- NOTE | 2017-02-06 16:56 | General Surg History&Physical ---
Assessment and Plan - Time spent with patient Time spent with patient: Greater than 30 minutes (1) Diabetic foot ulcer Status: Acute Assessment and plan: Left foot with bleeding diabetic foot ulcers with exposed tendon. We will need to take to surgery to control bleeding. We will also plan to debride and culture in surgery tomorrow, pending her labs. (2) Diabetes mellitus Status: Acute Assessment and plan: Type [address] on SSI and monitor during the perioperative period. (3) ESRD (end stage renal disease) on dialysis Status: Acute Assessment and plan: ESRD. She dialyses Friday, Friday, and Friday in [place]. We will check labs and get a nephrology consult. Hopefully we can do the surgery and discharge home, resuming her dialysis on Friday in [place]. (4) Left-sided weakness Status: Acute Assessment and plan: Old CVA with left hemiparesis. Offloading and pressure protection to prevent skin breakdown. Fall precautions and PT to help with transfers, etc. History of Present Illness Chief complaint: Bleeding ulcers of the left heel and lateral foot History of present illness: Ms. Rowland is a 56 year old female with history of CVA and diabetes who within the past 6 months progressed to hemodialysis. She developed infections of the left lower extremity as well as dialysis sites of either groin catheters with Pseudomonas and in September of this year underwent extensive debridement of these wounds with IV antibiotics post op. The thighs healed and the left foot wounds had been doing well until the past several weeks when the left heel decubitus ulcer began having more bleeding and failed to improve. The lateral and posterior foot wounds are deep with exposed tendon, but small in size, each less than 2cm. She noticed an increased mass like tissue on the left posterior heel and returned to our office for evaluation and treatment. Upon arrival, there is a large, 4x2cm fleshy broad based mass of hypergranulation tissue protruding from the posterior aspect of the heel ulcer; this is friable and when attempting to evaluate and cauterize the mass with silver nitrate, it began bleeding briskly, requiring electrocautery with hand held cautery and direct pressure before we could stop the bleeding. Once controlled, it was obvious that the area would have to be sharply debrided and cauterized before she could resume normal wound care, due to the location and complexity of her care and debility. She did have hemodialysis yesterday in [place], per her usual protocol. We elected to admit her for debridement in the morning, if her labs and EKG is stable enough to proceed. Home Medications Medication Instructions Recorded Confirmed Type Amitriptyline [Elavil] 50 mg PO BID 10/17/16 11/25/16 History Levothyroxine Tab [Synthroid Tab] 50 mcg PO DAILY 10/17/16 11/25/16 History Collagenase Oint [Santyl Oint] 1 applic TOP DAILY #1 applic 10/22/16 11/25/16 Rx Oxycodone HCl/Acetaminophen 1 each PO Q6-8H PRN #30 10/22/16 11/25/16 Rx [Percocet 10-325 mg Tablet] Silver Sulfadiazine 1% Cream 1 applic TOP DAILY #400 gm 10/22/16 11/25/16 Rx [Silvadene 1% Cream] Skin Healing Oint (Aquaphor) 1 applic TOP PRN PRN #1 applic 10/22/16 11/25/16 Rx [Aquaphor] Sevelamer Carbonate Tab [Renvela 1,600 mg PO TID W/MEALS 11/25/16 11/25/16 History Tab] Sevelamer Carbonate Tab [Renvela 800 mg PO WITH SNACKS 11/25/16 11/25/16 History Tab] Allergies Allergy/AdvReac Type Severity Reaction Status Date / Time moxifloxacin AdvReac Severe ITCHING Verified 10/17/16 12:01 Medical,Surgical,& Family Hx - Medical History Cardio: History of: Cerebrovascular Disease, PVD, Cardiovascular Problems (low blood pressure) Neurology: History of: Cerebrovascular Accident, Peripheral Neuropathy Endocrine: History of: Diabetes Mellitus (IDDM) Renal: History of: Dialysis, Renal Failure Genitourinary: History of: Bladder Problem (incontinence) Musculoskeletal: History of: Musculoskeletal Problems (paralysis related to stroke) Other: History of: Skin Problems (chronic wounds) - Surgical History Cardiac Surgeries: Sugical HX of: Vascular Access Devices (Currently has subclavian dialysis catheters ) Thoracic Surgeries: Patient denies;: Organ Transplant - Social History Smoking Status: Never smoker Exam - Constitutional General appearance: no acute distress, over weight - Head Head exam: Present: normocephalic - Eye Eye exam: Absent: conjunctival injection, periorbital swelling - Neck Neck exam: Present: trachea midline - Respiratory Respiratory exam: Present: clear to auscultation bilaterally. Absent: rales, wheezes - Cardiovascular Cardiovascular exam: Present: RRR - GI/Abdominal GI/Abdominal exam: Present: hypoactive bowel sounds, soft. Absent: tenderness - Extremities Exam Extremities exam: Present: other (See HPI; 5.5 x 1.5 cm of the left posterior heel, with a large, 4 x 1.3 cm fleshy mass at the proximal heel that is 1.6cm raised off the skin surface; it is friable and bleeds when brushed with a gloved finger. At thelateral left foot is a 1.9 x 1.7cm ulcer with exposed tendon and a portion of metatarsal head; no crepitus or gross purulence. It too bleeds easily but is not grossly infected. At the central foot is a 1.5 x 0.8cm wound with a 0.8 cm tendonous material present centrally and hypergranulation at the edges. ) - Neurological Exam Neurological exam: Present: alert, oriented X3, other (CVA with left hemiparesis ) Quality Measures - VTE Contraindication to Pharmacological VTE Prophylaxis: High Risk of Bleeding Contraindication to Mechanical VTE Prophylaxis: Local Inflammation
[2017-02-06 17:54] LABS: Basophils # 0.1 10*3/uL (0.0-0.2); Basophils % 1.6 % (0.0-0.8); Eosinophils # 0.3 10*3/uL (0.0-0.87); Eosinophils % 3.9 % (0.00-10.9); Hematocrit 32.9 VOL% (35.7-47.0); Immature Granulocytes % 0.3 %; Immature Granulocytes Absolute 0.02 #; Lymphocytes # 2.3 10*3/uL (1.4-4.0); Lymphocytes % 32.8 % (21.3-54.2); Mean Corpuscular HGB Conc 30.4 GM/DL (32-36); Mean Corpuscular Hemoglobin 27 PG (27-34); Mean Corpuscular Volume 89.4 FL (87-102); Mean Platelet Volume 10.8 FL (9.6-12.0); Monocytes # 0.5 10*3/uL (0.11-0.8); Monocytes % 6.6 % (1.7-12.7); Neutrophils # 3.8 10*3/uL (1.4-7.4); Neutrophils % 54.8 % (38.7-73.9); Platelet Count 204 T/CUMM (130-400); Red Blood Count 3.68 MC/CUMM (3.8-5.5); Red Cell Distribution Width 15.7 % (9.3-17.3); White Blood Count 6.9 T/CUMM (4-12)
[2017-02-06 18:08] LABS: Albumin 3.3 G/DL (3.4-5.0); Bilirubin,Total 0.4 MG/DL (0.2-1.0); Osmolality,Calculated 287.8 MOS/KG (273-304); Potassium 3.9 MMOL/L (3.5-5.1); Total Protein 8.4 G/DL (6.4-8.3)
[2017-02-06 18:14] LABS: PT Patient Result 10.6 SECS; Partial Thromboplastin Time 27.3 SECS (0-40)
[2017-02-06] MEDS ORDERED: SKIN HEALING OINT (AQUAPHOR) 50 GM TUBE TOP PRN (18:30)
[2017-02-06] MEDS ORDERED: SEVELAMER CARBONATE 800 MG TABLET PO SCH (18:30)
--- NOTE | 2017-02-06 19:18 | XRay Report ---
Exam: XR chest 1V portable Indication: Preop Comparison study: Prior radiograph dated 11/25/2016 Findings: Left chest dialysis catheter is now noted in position. Dialysis catheter tip is not well visualized but appears to terminate in the central and/or lower right atrium. Cardiac silhouette and mediastinal contours appear similar to prior. There is no pneumothorax or other focal consolidation/pleural effusion. Impression: No acute cardiopulmonary process. Left dialysis catheter in place, and tip terminates near the mid/lower right atrium. PROCEDURE INTERPRETED AT [facility] DEPARTMENT OF RADIOLOGY Final Report Signed by: New Garcia
[2017-02-06] MEDS: SODIUM CHLORIDE 0.45% 1,000 ML IV SCH (20:27)
[2017-02-06] MEDS: AMITRIPTYLINE 50 MG TABLET PO SCH (22:00)
[2017-02-06] MEDS: DOCUSATE SODIUM 100 MG CAPSULE PO SCH (22:00)
[2017-02-06] MEDS: INSULIN REGULAR 100 UNIT/ML SUBCUT SCH (22:00)
[2017-02-07] MEDS: INSULIN REGULAR 100 UNIT/ML SUBCUT SCH ×4 (07:47→21:36)
[2017-02-07] MEDS: PANTOPRAZOLE 40 MG TABLET PO SCH (08:05)
[2017-02-07] MEDS ORDERED: BUPIVACAINE 0.25% 50 ML VIAL ONE (08:15)
[2017-02-07] MEDS ORDERED: DEXAMETHASONE 4 MG/1 ML VIAL ONE (08:30)
[2017-02-07] MEDS ORDERED: ETOMIDATE 20 MG/10 ML VIAL IV ONE (08:30)
[2017-02-07] MEDS ORDERED: ONDANSETRON 4 MG/2 ML VIAL ONE (08:30)
[2017-02-07] MEDS ORDERED: KETOROLAC 30 MG/1 ML VIAL ONE (08:30)
[2017-02-07] MEDS ORDERED: LIDOCAINE 1% 5 ML VIAL ONE (08:30)
[2017-02-07] MEDS ORDERED: PROPOFOL 200 MG/20 ML VIAL IV ONE (08:30)
[2017-02-07] MEDS ORDERED: COLLAGENASE OINT 30 GM TUBE TOP SCH (09:00)
--- NOTE | 2017-02-07 09:20 | EKG Report ---
Stationary ECG Study [facility] Test Date: 02/07/2017 7:27:05 AM Pat Name: DAVIN OLSON Department: Room: 333 Gender: F Pet Caretaker: TAHMINA : 1960 Requested by: Frederick Ramos Order Number: [id number] Reading MD: NICHOLAS YEBOAH Intervals [place] Rate: 86 P: 71 WV: 155 QRS: 108 QRSD: 98 T: 3 QT: 393 QTc: 437 Interpretive Statements SINUS RHYTHM MARKED RIGHT AXIS DEVIATION LOW QRS VOLTAGE IN PRECORDIAL LEADS NONSPECIFIC T-WAVE ABNORMALITY Electronically Signed On 02-07-17 10:22:59 CDT by NICHOLAS YEBOAH [email or web address]
[2017-02-07] MEDS ORDERED: BISACODYL 5 MG TABLET PO PRN (09:24)
[2017-02-07] MEDS ORDERED: CHLORHEXIDINE 4% SOLN 118 ML BOTTLE TOP ONE (09:29)
--- NOTE | 2017-02-07 09:38 | Anesthesia Post-Op ---
Anesthesia Post OP - Post Ansesthetic Evaluation Patient seen in post op: Yes Resp: within normal limits CV: within normal limits Mental: within normal limits Temp: within normal limits [id number]: within normal limits Nausea and Vomiting: within normal limits Pain: within normal limits
[2017-02-07] MEDS ORDERED: fentaNYL 100 MCG/2 ML VIAL ONE (09:40)
[2017-02-07] MEDS ORDERED: MIDAZOLAM 2 MG/2 ML VIAL ONE (09:40)
[2017-02-07] MEDS ORDERED: SODIUM CHLORIDE 0.9% 100 ML IV ONE (09:43)
--- NOTE | 2017-02-07 09:44 | Operative Note ---
Date of procedure: 02/07/17 Pre-op diagnosis: Diabetic decubitus ulcers of the left foot Post-op diagnosis: same Procedure: Operative note: Preoperative diagnosis: Diabetic decubitus ulcers of the left heel and left foot 2 Postoperative diagnosis: 1. Stage IV diabetic decubitus ulcer left heel 2. Stage III decubitus ulcer plantar surface left foot 3. Stage IV decubitus ulcer fifth metatarsal head left foot Procedure: 1. Excisional debridement of skin subtenons tissue tendon of the left heel 2. Excisional debridement of skin subtenons tissue tendon of the plantar surface of the left foot 3. Excisional debridement of ulcer fifth metatarsal head of skin subtenons tissue and bone Surgeon Dr. Ramos Microbiology Quality Control Technician Kylee Fritz, CARD PLACER ACNP And anesthesia was managed anesthetic care with local Brief history: 56-year-old diabetic white female with chronic renal failure dialysis patient who came to the office with ulcers of the left heel and foot with a large granulating mass on the heel. Attempts to debride in the office resulted in good bit of blood and bleeding so we put her in so we can get these areas debrided better and get some good cultures to find out what we are dealing with see if we can improve the healing at this time. Procedure: With patient prepped and draped in a sterile fashion in the right decubitus position with timeout and antibiotics completed and we approach this area of the foot left. The pre-debridement measurements were 1. Left fifth metatarsal head is 1.4 x 1.6 x 0.2 cm. Plantar surface ulcer is 1.5 x 0.5 x 0.2 cm. Heel ulcer is 5 x 2.5 x 0.2 cm. With that completed on these measurements and then we will went ahead and begin to her local anesthetic in and around these areas. I then went to the fifth metatarsal head area took the knife and did an elliptical incision of the necrotic skin around the edge of it and then begin to debride this subcutaneous fat and tendon from this area. This exposed the bone in this area at the first metatarsal head with some cartilage we took the rondure begin to debride bone away get a good clean flat surface at this area. Debrided little more tendon around that we had a good clean base present. Once we had finished the fifth metatarsal head post debridement is 2 x 2 x 0.4 cm in size. Next moved to the plantar surface ulcer at that point time were will begin to debride the skin around the edges of it and then debrided the tendon that was sent in the bottom of it which was probably plantar fascia. Once that was debrided and cleaned and bleeding was controlled with cauterization and we had an ulcer that is 2 x 1 x 0.5 cm in size. With that completed then we went to the heel which is larger ulcer at this time. I took the knife being and trim that hyper granulating tissue down as we did we encountered some Achilles tendon and other fascial tissue in this area that we had to debride away at this point. We debrided good bit of this tissue down and away and debride the skin that was necrotic around the edges of it. We debrided the base which got us down the bone without exposing bone at this time. I debrided this carefully and try to get this whole process cleaned up of the hyper granulating tissue and the other necrotic tendinous material to get a good clean base. Once we had this debrided well we use light cauterization control bleeding at this point. We now have an ulcer that is 5 x 3.5 x 0.3 cm in size. With that completed bleeding is controlled and we dressed all the wounds at this time took her recovery. Estimated blood loss 15 cc Sponge count correct 2 drains None complications none Condition stable satisfactory Anesthesia: MAC, local (0.25% Marcaine plain mixed [id number] 1% Xylocaine plain) Surgeon / Physician: Frederick Ramos Microbiology Quality Control Technician: Kylee Fritz Estimated blood loss: other (15 cc) Specimens: other (Tissue for culture) Condition: stable Disposition: floor Results - Labs CBC & BMP: 02/06/17 17:29 02/06/17 17:29 Discharge Plan - Discharge Medications No Action Collagenase Oint [Santyl Oint] 1 applic TOP DAILY #1 applic Silver Sulfadiazine 1% Cream [Silvadene 1% Cream] 1 applic TOP DAILY #400 gm Amitriptyline [Elavil] 50 mg PO BID Skin Healing Oint (Aquaphor) [Aquaphor] 1 applic TOP PRN PRN #1 applic PRN Reason: Dry Skin - Follow Up or Referral - Forms/Instructions
[2017-02-07] MEDS ORDERED: SODIUM CHLORIDE 0.9% IV SCH (10:00)
[2017-02-07] MEDS ORDERED: DORIPENEM IV SCH (10:00)
[2017-02-07] MEDS: AMITRIPTYLINE 50 MG TABLET PO SCH ×2 (10:28→21:36)
[2017-02-07] MEDS: SEVELAMER CARBONATE 800 MG TABLET PO SCH ×4 (10:28→17:41)
[2017-02-07] MEDS: DOCUSATE SODIUM 100 MG CAPSULE PO SCH ×2 (10:28→21:36)
[2017-02-07] MEDS: LEVOTHYROXINE 50 MCG TABLET PO SCH (10:28)
[2017-02-07] MEDS: MEROPENEM 500 MG in SODIUM CHLORIDE 0.9% 100 ML IV SCH ×2 (10:44→22:41)
[2017-02-07] MEDS: GENTAMICIN 0.1% OINT 15 GM TUBE TOP SCH ×2 (15:04→21:37)
[2017-02-07 15:55] LABS: Hepatitis A Ab IgM Quant 0.07 Index; Hepatitis A Ab IgM Result Negative (Negative); Hepatitis B Core IgM Quant 0.13 Index; Hepatitis B Core IgM Result Negative (Negative); Hepatitis B Surface Ag Quant 0.66 Index; Hepatitis B Surface Ag Result Negative (Negative); Hepatitis C Virus Ab Quant 0.06 Index; Hepatitis C Virus Ab Result Negative (Negative)
[2017-02-07] MEDS: SODIUM CHLORIDE 0.45% 1,000 ML IV SCH (17:40)
--- NOTE | 2017-02-07 18:24 | Dialysis Note ---
Dialysis Note - Dialysis Note Patient seen on dialysis she is tolerating the procedure. Blood pressures 123/72. Cardiovascular is regular rate. Lungs clear to auscultation. Abdomen is soft.
--- NOTE | 2017-02-07 18:26 | Nephrology Consult Note ---
History of Present Illness Chief complaint: End-stage renal disease History of present illness: Ms. Rowland is a 56 year old female patient with a history of end-stage renal disease due to hypertension diabetes. The patient currently dialyzes in the [facility] on a Friday schedule. She has been admitted for lower extremity wound. Of note, patient has been on dialysis since July of this year currently has a tunnel catheter in place. No shortness of breath or chest pain. Nephrology has been consulted for renal issues. Home Medications Medication Instructions Recorded Confirmed Type Amitriptyline [Elavil] 50 mg PO BID 10/17/16 02/06/17 History Collagenase Oint [Santyl Oint] 1 applic TOP DAILY #1 applic 10/22/16 02/06/17 Rx Silver Sulfadiazine 1% Cream 1 applic TOP DAILY #400 gm 10/22/16 02/06/17 Rx [Silvadene 1% Cream] Skin Healing Oint (Aquaphor) 1 applic TOP PRN PRN #1 applic 10/22/16 02/06/17 Rx [Aquaphor] Allergies Allergy/AdvReac Type Severity Reaction Status Date / Time moxifloxacin AdvReac Severe ITCHING Verified 10/17/16 12:01 Medical,Surgical,& Family Hx - Medical History Cardio: History of: Cerebrovascular Disease, Hypertension (States was until started dialysis), PVD, Cardiovascular Problems (low blood pressure) Neurology: History of: Cerebrovascular Accident (2006), Peripheral Neuropathy Endocrine: History of: Diabetes Mellitus (IDDM) Renal: History of: Dialysis (MWF), Renal Failure Genitourinary: History of: Bladder Problem (incontinence) Musculoskeletal: History of: Musculoskeletal Problems (paralysis related to stroke) Hematology: History of: Anemia Other: History of: Skin Problems (chronic wounds - left heel) - Surgical History Cardiac Surgeries: Sugical HX of: Vascular Access Devices (Currently has subclavian dialysis catheters ) Thoracic Surgeries: Patient denies;: Organ Transplant HEENT Surgeries: Patient denies: Eye Surgery, Tonsilectomy & Adenoidectomy Abdominal Surgeries: Surgical HX of: Appendectomy, Cholecystectomy - Family History Family History: Reports;: Family Cancer (mother, father, sister, mathernal grandmother), Family Diabetes (father), Family Heart Disease (father), Family Hypertension (father), Family Stroke (paternal grandmother) Denies;: Family Psychiatric Problems - Social History Smoking Status: Never smoker Frequency of Alcohol Use: None Type of Drug Use: None Review of Systems Constitutional: no anorexia, no chills Cardiovascular: no dyspnea, no dyspnea on exertion Respiratory: no cough, no dyspnea Genitourinary: no dysuria Exam - Vital Signs Vital signs: Period Temp Pulse Resp BP Sys/English Pulse Ox Last 24 Hr 97.0 F-99.1 F 86-106 16-19 101-141/62-79 93-100 - General Appearance General appearance: well-developed, fatigue EENT: ATNC Neck: supple Cardiology: regular rate, regular rhythm Gastrointestinal: normoactive bowel sounds Integumentary: no rash Neurologic: alert and oriented x3 Psychiatric: mood/affect appropriate Results - Labs CBC & BMP: 02/06/17 17:29 02/06/17 17:29 Assessment and Plan (1) Diabetic ulcer of heel Status: Chronic Current Visit: No Qualifiers: Diabetes mellitus type: type 2 (2) ESRD (end stage renal disease) on dialysis Status: Chronic Assessment and plan: Plan for hemodialysis on schedule of Friday. Will follow prescription from outpatient. Current Visit: No (3) Anemia Status: Chronic Current Visit: No (4) Diabetes mellitus Status: Chronic Current Visit: No Qualifiers: Diabetes mellitus type: type 2 Diabetes mellitus complication status: with kidney complications Chronic kidney disease stage: on chronic dialysis
[2017-02-07] MEDS: ceFAZolin 2,000 MG in PREMIX 1 EACH IV SCH (20:10)
[2017-02-07] MEDS: ACETIC ACID 0.25% IRRIGATION 1,000 ML BOTTLE IRRIG SCH (21:42)
[2017-02-08 03:45] LABS: Basophils # 0.1 10*3/uL (0.0-0.2); Basophils % 0.8 % (0.0-0.8); Eosinophils # 0.1 10*3/uL (0.0-0.87); Eosinophils % 1.3 % (0.00-10.9); Hematocrit 26.8 VOL% (35.7-47.0); Hemoglobin 8.5 GM/DL (12.0-16.0); Immature Granulocytes % 0.2 %; Immature Granulocytes Absolute 0.01 #; Lymphocytes # 2.1 10*3/uL (1.4-4.0); Lymphocytes % 33.8 % (21.3-54.2); Mean Corpuscular HGB Conc 31.7 GM/DL (32-36); Mean Corpuscular Hemoglobin 28 PG (27-34); Mean Corpuscular Volume 87.3 FL (87-102); Mean Platelet Volume 11.1 FL (9.6-12.0); Monocytes # 0.4 10*3/uL (0.11-0.8); Monocytes % 6.1 % (1.7-12.7); NRBC # 0.02 10*3/uL; Neutrophils # 3.6 10*3/uL (1.4-7.4); Neutrophils % 57.8 % (38.7-73.9); Platelet Count 178 T/CUMM (130-400); Red Blood Count 3.07 MC/CUMM (3.8-5.5); Red Cell Distribution Width 15.6 % (9.3-17.3); White Blood Count 6.2 T/CUMM (4-12)
[2017-02-08] MEDS: ceFAZolin 2,000 MG in PREMIX 1 EACH IV SCH (04:03)
[2017-02-08 04:27] LABS: Calcium 8.4 MG/DL (8.5-10.1); Osmolality,Calculated 279.1 MOS/KG (273-304); Potassium 4.6 MMOL/L (3.5-5.1)
[2017-02-08] MEDS: SEVELAMER CARBONATE 800 MG TABLET PO SCH ×3 (09:08→16:01)
[2017-02-08] MEDS: AMITRIPTYLINE 50 MG TABLET PO SCH ×2 (09:08→20:59)
[2017-02-08] MEDS: DOCUSATE SODIUM 100 MG CAPSULE PO SCH ×2 (09:08→20:58)
[2017-02-08] MEDS: PANTOPRAZOLE 40 MG TABLET PO SCH (09:08)
[2017-02-08] MEDS: LEVOTHYROXINE 50 MCG TABLET PO SCH (09:09)
--- NOTE | 2017-02-08 09:11 | Event Note ---
She denies pain. She is afebrile with stable vital signs. Her white blood cell count is normal. She is undergoing wound care of her left heel per Dr. Ramos's plan. She wants to see me after discharge for looking at an AV graft or fistula in her upper extremity.
[2017-02-08] MEDS: INSULIN REGULAR 100 UNIT/ML SUBCUT SCH ×4 (09:33→21:11)
[2017-02-08] MEDS: GENTAMICIN 0.1% OINT 15 GM TUBE TOP SCH ×3 (11:19→21:00)
[2017-02-08] MEDS: MEROPENEM 500 MG in SODIUM CHLORIDE 0.9% 100 ML IV SCH ×2 (11:19→23:14)
[2017-02-08] MEDS: ACETIC ACID 0.25% IRRIGATION 1,000 ML BOTTLE IRRIG SCH ×2 (11:19→21:13)
[2017-02-08] MEDS: SODIUM CHLORIDE 0.45% 1,000 ML IV SCH (16:01)
--- NOTE | 2017-02-08 19:36 | Nephrology Progress Note ---
Nephrology - PN: Subj Interval history: Patient is resting comfortably no acute changes. No fevers or chills. Exam (PN)-Nephrology - Vital Signs Vital signs: Period Temp Pulse Resp BP Sys/English Pulse Ox Last 24 Hr 97.0 F-98.2 F 90-97 18-20 122-146/67-82 98-100 - General Appearance General appearance: well-developed, well-nourished EENT: ATNC Neck: supple Respiratory: clear Cardiology: regular rate, regular rhythm Gastrointestinal: normoactive bowel sounds, no tenderness Neurologic: alert and oriented x3 Musculoskeletal: no clubbing Psychiatric: mood/affect appropriate - Lab 02/08/17 03:18 02/08/17 03:18 Most recent lab results Calcium 8.4 MG/DL (8.5-10.1) L 02/08/17 03:18 Assessment and Plan (1) Diabetic ulcer of heel Status: Chronic Current Visit: No Qualifiers: Diabetes mellitus type: type 2 (2) ESRD (end stage renal disease) on dialysis Status: Chronic Assessment and plan: Continue with scheduled hemodialysis on Friday. Current Visit: No (3) Anemia Status: Chronic Current Visit: No (4) Diabetes mellitus Status: Chronic Current Visit: No Qualifiers: Diabetes mellitus type: type 2 Diabetes mellitus complication status: with kidney complications Chronic kidney disease stage: on chronic dialysis Specialty Discharge - Follow Up or Referrals Follow up with: Lobito Lopez III., MD [Physician] - (Call to schedule an appointment after discharge for vein mapping)
[2017-02-09] MEDS: SEVELAMER CARBONATE 800 MG TABLET PO SCH ×3 (08:03→16:05)
[2017-02-09] MEDS: DOCUSATE SODIUM 100 MG CAPSULE PO SCH ×2 (08:18→21:23)
[2017-02-09] MEDS: PANTOPRAZOLE 40 MG TABLET PO SCH (08:18)
[2017-02-09] MEDS: ACETIC ACID 0.25% IRRIGATION 1,000 ML BOTTLE IRRIG SCH ×2 (08:18→21:24)
[2017-02-09] MEDS: LEVOTHYROXINE 50 MCG TABLET PO SCH (08:18)
[2017-02-09] MEDS: AMITRIPTYLINE 50 MG TABLET PO SCH ×2 (08:18→21:23)
[2017-02-09] MEDS: GENTAMICIN 0.1% OINT 15 GM TUBE TOP SCH ×3 (08:19→21:25)
[2017-02-09] MEDS: INSULIN REGULAR 100 UNIT/ML SUBCUT SCH ×4 (08:19→21:24)
--- NOTE | 2017-02-09 10:34 | Nephrology Progress Note ---
Nephrology - PN: Subj Interval history: Patient is resting comfortably no acute changes. No fevers or chills. 02/09/2017. The patient is resting comfortably no acute changes no shortness of breath or chest pain. Exam (PN)-Nephrology - Vital Signs Vital signs: Period Temp Pulse Resp BP Sys/English Pulse Ox Last 24 Hr 97.1 F-98 F 84-97 18-20 119-139/52-82 95-99 - General Appearance General appearance: well-developed, well-nourished EENT: ATNC Neck: supple Respiratory: clear Cardiology: regular rate, regular rhythm Gastrointestinal: normoactive bowel sounds, no tenderness Integumentary: no rash Neurologic: alert and oriented x3 Psychiatric: mood/affect appropriate, cooperative - Lab 02/08/17 03:18 02/08/17 03:18 Most recent lab results Calcium 8.4 MG/DL (8.5-10.1) L 02/08/17 03:18 Assessment and Plan (1) Diabetic ulcer of heel Status: Chronic Current Visit: No Qualifiers: Diabetes mellitus type: type 2 (2) ESRD (end stage renal disease) on dialysis Status: Chronic Assessment and plan: Continue with scheduled hemodialysis on Friday. Current Visit: No (3) Anemia Status: Chronic Current Visit: No (4) Diabetes mellitus Status: Chronic Current Visit: No Qualifiers: Diabetes mellitus type: type 2 Diabetes mellitus complication status: with kidney complications Chronic kidney disease stage: on chronic dialysis Specialty Discharge - Follow Up or Referrals Follow up with: Lobito Lopez III., MD [Physician] - (Call to schedule an appointment after discharge for vein mapping)
--- NOTE | 2017-02-09 11:08 | Event Note ---
She has no complaints. She is afebrile. Dressing is dry. We are continuing antibiotics.
[2017-02-09] MEDS: MEROPENEM 500 MG in SODIUM CHLORIDE 0.9% 100 ML IV SCH ×2 (12:05→22:49)
[2017-02-09] MEDS: SODIUM CHLORIDE 0.45% 1,000 ML IV SCH (16:05)
[2017-02-10] MEDS: SEVELAMER CARBONATE 800 MG TABLET PO SCH ×2 (08:37→13:04)
[2017-02-10] MEDS: AMITRIPTYLINE 50 MG TABLET PO SCH (08:37)
[2017-02-10] MEDS: PANTOPRAZOLE 40 MG TABLET PO SCH (08:37)
[2017-02-10] MEDS: DOCUSATE SODIUM 100 MG CAPSULE PO SCH (08:37)
[2017-02-10] MEDS: LEVOTHYROXINE 50 MCG TABLET PO SCH (08:37)
[2017-02-10] MEDS: GENTAMICIN 0.1% OINT 15 GM TUBE TOP SCH ×2 (08:38→16:03)
[2017-02-10] MEDS: ACETIC ACID 0.25% IRRIGATION 1,000 ML BOTTLE IRRIG SCH (08:38)
--- NOTE | 2017-02-10 08:39 | Discharge Summary ---
Hospital Course - Hospital Course Hospital Course: Discharge summary 02/10/2017. Diagnosis: 1. Diabetic ulcers of left foot with infection and exposed tendon 2. Pseudomonas aeruginosa of the wound. 3. End-stage renal disease, on hemodialysis, stable 4. CVA with left hemiparesis, stable 5. Diabetes mellitus, type II, stable 6. Hypertension, stable Procedure performed: Excisional debridement of left foot Brief summary-this 56-year-old diabetic female with end-stage renal disease and old CVA with left-sided hemiparesis presented to the office after a nonhealing wound of the left foot became difficult to manage at home. We had followed her intermittently as outpatient, but because of the geographic difficulty of getting her back and forth, she had made only part of her follow-up appointments. The left heel ulcer had somewhat healed, but had developed a large greater than 4 cm area of fleshy hyper granulation tissue which was impairing healing of the wound. This extended toward the Achilles tendon, and did in fact involved some tendinous material with in the hyper granulating mass. She had an addition had a deeper yet very small wound, approximately 2 x 2 cm, of the left fifth metatarsal head on the plantar surface, as well as a midfoot ulcer that is approximately 1 x 1 cm with extensor tendon exposed as well. All these wounds were debrided and surgery on 02/07/2017, and cultures were taken which ultimately grew Pseudomonas aeruginosa. There is no further clinical sign of infection of these wounds, and the unhealthy, chronically infected tissue has all been debrided. She is allergic to moxifloxacin, and there is also resistance to Cipro on her sensitivities, so with the infected tissue having been addressed and no clinical sign of infection therefore we will address her positive cultures with acetic acid irrigations and topical gentamicin. She was kept for the weekend, and her hemodialysis was administered. Her labs have remained stable, and today her wounds are clean without bleeding. The wound beds all pink and viable. She has no ischemic changes, no swelling, and no evidence of any further operative granulation. Her vital signs are stable, and she and her have been instructed on wound care. We have enlisted home health to resume weekly assistance with her dressing changes, and will resume her routine dialysis schedule Friday and Friday and [facility]. We will plan to follow-up at [facility] in approximately 3-4 weeks unless she has problems sooner. - Time spent with patient Time with patient DS: Greater than 30 minutes Diagnosis - Discharge Diagnosis (1) Diabetic foot ulcer Status: Acute (2) Left-sided weakness Status: Acute (3) ESRD (end stage renal disease) on dialysis Status: Chronic (4) Diabetes mellitus Status: Chronic Specialty Discharge - Follow Up or Referrals Follow up with: Lobito Lopez III., MD [Physician] - (Call to schedule an appointment after discharge for vein mapping) Frederick Ramos MD [Physician] - (Make a new patient appointment with Dr Ramos at [facility] in 3-4 weeks for follow up) Discharge Plan - Discharge Data Disposition: Home Health Service Condition at Discharge: Stable Discharge Diet: diabetic diet Activity: increase activity as tolerated, other (Avoid weightbearing to the left lower extremity; continue to use offloading blue heel protection boots.) Weight Bearing at Discharge: other (As above; prevent weightbearing to left heel and left foot, especially the left lateral and left plantar foot) Contact your physician if you experience:: fever over 101, Redness or swelling, Bleeding Wound / Dressing Care Instructions: Wash left lower extremity every other day with Hibiclens; rinse with saline. Irrigate left heel and left foot wounds with 20 mL of 0.25% acetic acid solution. Pat dry. Apply Aure or any comparable collagen wound product to the wound bed. Cover with slight film of gentamicin cream. Place a optive foam adhesive dressing over each wound. Aquaphor to remainder of foot and leg. Heel pad to heel. Wrap from base of toes to the knee with cast padding and secure with Coban. Wear blue foam heel boots to offload heels and feet. - Discharge Medications New Gentamicin 0.1% Cream [Garamycin 0.1% Cream] 1 gram TOP DAILY #1 unit Acetic Acid 0.25% Irrigation 50 ml IRRIG BID #1 ml Continue Amitriptyline [Elavil] 50 mg PO BID Skin Healing Oint (Aquaphor) [Aquaphor] 1 applic TOP PRN PRN #1 applic PRN Reason: Dry Skin No Action Collagenase Oint [Santyl Oint] 1 applic TOP DAILY #1 applic Silver Sulfadiazine 1% Cream [Silvadene 1% Cream] 1 applic TOP DAILY #400 gm - Follow Up or Referral Follow Up: Lobito Lopez III., MD [Physician] - (Call to schedule an appointment after discharge for vein mapping) - Forms/Instructions Exam - Constitutional Vitals: Period Temp Pulse Resp BP Sys/English Pulse Ox Last 24 Hr 97.0 F-98.1 F 86-99 14-20 105-136/60-73 97-100 General appearance: no acute distress, over weight - Respiratory Respiratory exam: Present: clear to auscultation bilaterally - Cardiovascular Cardiovascular exam: Present: regular rate and rhythm - GI/Abdominal GI/Abdominal exam: Present: hypoactive bowel sounds, soft. Absent: tenderness - Extremities Exam Extremities exam: Present: other (Left heel wound is clean and there is beefy pink wound bed without hypercoagulation, bleeding, or purulence. There is no necrotic tissue noted. There is no swelling, no ecchymosis, and no unusual tenderness. There is a small amount of tenderness anteriorly noted toward the Achilles portion of the wound, but overall the wound bed is clean and healthy. Midfoot plantar surface is a 1.5 x 1 cm wound, with small amount of tendinous material in the center. The wound bed is pink and. 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 She has also been receiving Zosyn IV during her hospitalization. DS: Provider Date of admission: 02/06/17 16:37 Primary care physician: . No PCP Attending physician on admission: Frederick Ramos MD Consults: 02/06/17 16:41 Consult to Physician [CONS] Routine Comment: Consulting Provider: Daren Macdonald Jr. Consulting Provider Notified: Yes When should Consulting Provider be notified: Now Consult to Specialist Group: Nephrology When should Consulting Provider be notified: Now Person Notified: brianne drake Date Notified: 02/07/17 Time Notified: 08:24 Consult Notification Comment: dialysis patient that needs surgery on foot 02/06/17 16:46 Consult to Anesthesiology [CONS] Routine Consulting Provider: Reason for Anesthesiology: Pre-op Clearance 02/06/17 18:50 Consult to Dietitian [CONS] Routine Reason for Dietitian: Dietary Consult Consult to Pastoral Services [CONS] Routine Comment: Pastoral Screen: Request Special Events Manager Visit 02/07/17 09:24 Consult to Wound Care - [place] [CONS] Routine Reason for Wound Care: Wound Care Management Consult Comment: Left heel and foot ulcers Discharging clinician: Kylee Fritz CNP, R
[2017-02-10] MEDS: INSULIN REGULAR 100 UNIT/ML SUBCUT SCH ×3 (08:51→16:35)
--- NOTE | 2017-02-10 11:32 | Dialysis Note ---
Dialysis Note - Dialysis Note Patient seen on dialysis. She is tolerating the procedure. No shortness of breath or chest pain. Blood pressure 130/70. Cardiovascular is regular rate. Lungs clear to auscultation. Abdomen is soft.
[2017-02-10] MEDS: MEROPENEM 500 MG in SODIUM CHLORIDE 0.9% 100 ML IV SCH (13:03)
[2017-02-10 16:24] VITALS: BP 102/63
== END 2017-02-10 17:19 | disposition home health service (06) | DRG 981 ==
LOC: N.3E 16:44 → N.5E 02-07 14:30
PROVIDERS: ADMIT Specialist; ATTEND Specialist

== ENCOUNTER 2018-04-30 10:14 | Inpatient (IN) ==
[2018-04-30] MEDS ORDERED: ACETAMINOPHEN 650 MG SUPP RECTAL STA (10:46)
[2018-04-30] MEDS ORDERED: VANCOMYCIN INJ 1,000 MG in SODIUM CHLORIDE 0.9% 250 ML IV STA (10:48)
[2018-04-30] MEDS ORDERED: SODIUM CHLORIDE 0.9% 500 ML IV STA (10:48)
[2018-04-30 11:01] LABS: Basophils % 0.3 % (0.0-0.8); Hematocrit 20.5 VOL% (35.7-47.0); Immature Granulocytes % 0.8 %; Immature Granulocytes Absolute 0.06 #; Lymphocytes # 0.7 10*3/uL (1.4-4.0); Lymphocytes % 9.3 % (21.3-54.2); Mean Corpuscular HGB Conc 29.8 GM/DL (32-36); Mean Corpuscular Hemoglobin 26 PG (27-34); Mean Corpuscular Volume 86.5 FL (87-102); Mean Platelet Volume 11.1 FL (9.6-12.0); Monocytes # 0.3 10*3/uL (0.11-0.8); Monocytes % 3.7 % (1.7-12.7); Neutrophils # 6.6 10*3/uL (1.4-7.4); Neutrophils % 85.9 % (38.7-73.9); Platelet Count 147 T/CUMM (130-400); Red Blood Count 2.37 MC/CUMM (3.8-5.5); Red Cell Distribution Width 16.8 % (9.3-17.3); White Blood Count 7.6 T/CUMM (4-12)
[2018-04-30 11:02] LABS: Hemoglobin 6.1 GM/DL (12.0-16.0)
[2018-04-30 11:23] LABS: Alanine Aminotransferase < 9 U/L (13-56); Albumin 1.8 G/DL (3.4-5.0); Alkaline Phosphatase 103 U/L (45-117); Aspartate Amino Transferase 20 U/L (0-37); Blood Urea Nitrogen 16 MG/DL (7-18); Calcium 7.5 MG/DL (8.5-10.1); Glucose 147 MG/DL (74-106); Osmolality,Calculated 278.7 MOS/KG (273-304); Potassium 3.4 MMOL/L (3.5-5.1); Sodium 138 MMOL/L (136-145)
[2018-04-30 11:24] LABS: Lactic Acid 2.1 MMOL/L (0.4-2.0)
[2018-04-30] MEDS ORDERED: VANCOMYCIN 1,000 MG VIAL ONE (11:39)
[2018-04-30] MEDS ORDERED: ALBUTEROL 2.5 MG/3 ML NEB RESP TX PRN (12:58)
[2018-04-30] MEDS ORDERED: SODIUM CHLORIDE 0.9% 1,000 ML IV PRN (14:31)
[2018-04-30] MEDS ORDERED: GLUCAGON 1 MG VIAL IM PRN (15:39)
[2018-04-30] MEDS ORDERED: DEXTROSE 50% 25 GM/50 ML VIAL IV PRN (15:39)
[2018-04-30] MEDS: ZINC OXIDE PASTE 113 GM TUBE TOP SCH (16:01)
[2018-04-30] MEDS: PANTOPRAZOLE 40 MG VIAL IV SCH (16:01)
[2018-04-30] MEDS: HEPARIN 5,000 UNIT/1 ML VIAL SUBCUT SCH (16:03)
[2018-04-30] MEDS: INSULIN REGULAR 100 UNIT/ML SUBCUT SCH ×2 (17:03→22:09)
[2018-04-30 17:52] LABS: Folate 6.7 NG/ML (5.4-24.0)
[2018-04-30 17:58] LABS: % Iron Saturation 13.5 % (18-50); Ferritin 3203.1 ng/ml (8-252)
[2018-05-01 00:38] LABS: Hematocrit 22.2 VOL% (35.7-47.0); Hemoglobin 6.9 GM/DL (12.0-16.0)
[2018-05-01] MEDS: ZINC OXIDE PASTE 113 GM TUBE TOP SCH ×2 (03:15→09:30)
[2018-05-01 05:54] LABS: Basophils % 0.3 % (0.0-0.8); Eosinophils % 0.2 % (0.00-10.9); Hemoglobin 6.6 GM/DL (12.0-16.0); Immature Granulocytes % 0.5 %; Immature Granulocytes Absolute 0.03 #; Lymphocytes # 1.1 10*3/uL (1.4-4.0); Lymphocytes % 17.7 % (21.3-54.2); Mean Corpuscular HGB Conc 31.4 GM/DL (32-36); Mean Corpuscular Hemoglobin 27 PG (27-34); Mean Corpuscular Volume 86.4 FL (87-102); Mean Platelet Volume 11.8 FL (9.6-12.0); Monocytes # 0.3 10*3/uL (0.11-0.8); Monocytes % 4.4 % (1.7-12.7); Neutrophils # 4.7 10*3/uL (1.4-7.4); Neutrophils % 76.9 % (38.7-73.9); Red Blood Count 2.43 MC/CUMM (3.8-5.5); Red Cell Distribution Width 15.9 % (9.3-17.3); White Blood Count 6.2 T/CUMM (4-12)
[2018-05-01 05:58] LABS: Platelet Count 116 T/CUMM (130-400)
[2018-05-01 06:31] LABS: Albumin 1.6 G/DL (3.4-5.0); Bilirubin,Total 0.8 MG/DL (0.2-1.0); Calcium 7.3 MG/DL (8.5-10.1); Osmolality,Calculated 284.4 MOS/KG (273-304); Potassium 3.5 MMOL/L (3.5-5.1); Thyroid Stimulating Hormone 1.92 uIU/ml (0.358-3.74); Total Protein 6.5 G/DL (6.4-8.3)
[2018-05-01 06:52] LABS: Hypochromasia 1+; Lymphocytes 25 % (20-55); Ovalocytes Slight; Platelet Estimate Decreased; Segmented Neutrophils 71 % (50-85); Total Cells Counted 100
[2018-05-01] MEDS: INSULIN REGULAR 100 UNIT/ML SUBCUT SCH ×4 (07:30→22:48)
[2018-05-01] MEDS ORDERED: BUPIVACAINE MPF 0.25% 30 ML VIAL ONE (10:27)
[2018-05-01] MEDS ORDERED: LIDOCAINE 1% 20 ML VIAL ONE (10:27)
[2018-05-01] MEDS ORDERED: KETAMINE 500 MG/10 ML VIAL ONE (11:33)
[2018-05-01] MEDS ORDERED: MIDAZOLAM 2 MG/2 ML VIAL ONE (11:33)
[2018-05-01] MEDS ORDERED: fentaNYL 100 MCG/2 ML VIAL ONE (11:33)
[2018-05-01] MEDS ORDERED: VANCOMYCIN INJ 1,000 MG in SODIUM CHLORIDE 0.9% 250 ML IV PRN (11:49)
[2018-05-01] MEDS: PANTOPRAZOLE 40 MG VIAL IV SCH (14:06)
[2018-05-01] MEDS ORDERED: VANCOMYCIN INJ 2,500 MG in SODIUM CHLORIDE 0.9% 500 ML IV ONE (15:00)
[2018-05-01] MEDS ORDERED: HEPARIN 10,000 UNIT/10 ML VIAL IV SCH (18:00)
[2018-05-01] MEDS ORDERED: SODIUM CHLORIDE 0.9% 1,000 ML IV PRN (19:05)
[2018-05-01] MEDS: HEPARIN 5,000 UNIT/1 ML VIAL SUBCUT SCH (20:42)
[2018-05-01] MEDS: ACETAMINOPHEN 325 MG TABLET PO PRN (22:34)
[2018-05-02] MEDS: AMIODARONE 200 MG TABLET PO SCH ×3 (00:55→22:35)
[2018-05-02] MEDS: ACETAMINOPHEN 325 MG TABLET PO PRN ×2 (01:00→09:33)
[2018-05-02] MEDS ORDERED: NOREPINEPHRINE 4 MG/4 ML VIAL IV ONE ×2 (01:58→02:04)
[2018-05-02] MEDS: MORPHINE 4 MG/1 ML VIAL IV PRN (02:09)
[2018-05-02] MEDS ORDERED: NOREPINEPHRINE 8 MG in SODIUM CHLORIDE 0.9% 242 ML IV PRN (02:09)
[2018-05-02] MEDS: dilTIAZem Drip 125 MG/125 ML PREMIX IV SCH ×2 (02:13→13:17)
[2018-05-02] MEDS: ZINC OXIDE PASTE 113 GM TUBE TOP SCH ×3 (03:00→22:36)
[2018-05-02] MEDS: HEPARIN 5,000 UNIT/1 ML VIAL SUBCUT SCH ×2 (04:13→17:03)
[2018-05-02 04:26] LABS: Basophils % 0.4 % (0.0-0.8); Eosinophils # 0.1 10*3/uL (0.0-0.87); Eosinophils % 1.7 % (0.00-10.9); Hematocrit 28.1 VOL% (35.7-47.0); Hemoglobin 8.8 GM/DL (12.0-16.0); Immature Granulocytes % 0.5 %; Immature Granulocytes Absolute 0.04 #; Lymphocytes # 1.5 10*3/uL (1.4-4.0); Lymphocytes % 17.9 % (21.3-54.2); Mean Corpuscular HGB Conc 31.3 GM/DL (32-36); Mean Corpuscular Hemoglobin 28 PG (27-34); Mean Corpuscular Volume 88.6 FL (87-102); Mean Platelet Volume 11.4 FL (9.6-12.0); Monocytes # 0.4 10*3/uL (0.11-0.8); Monocytes % 5.3 % (1.7-12.7); Neutrophils # 6.1 10*3/uL (1.4-7.4); Neutrophils % 74.2 % (38.7-73.9); Platelet Count 117 T/CUMM (130-400); Red Blood Count 3.17 MC/CUMM (3.8-5.5); Red Cell Distribution Width 15.3 % (9.3-17.3); White Blood Count 8.2 T/CUMM (4-12)
[2018-05-02] MEDS: INSULIN REGULAR 100 UNIT/ML SUBCUT SCH ×4 (08:32→20:27)
[2018-05-02] MEDS: CLINDAMYCIN INJ 300 MG in PREMIX 1 EACH IV SCH ×2 (15:30→22:36)
[2018-05-02] MEDS: PANTOPRAZOLE 40 MG VIAL IV SCH (17:05)
[2018-05-03] MEDS: dilTIAZem Drip 125 MG/125 ML PREMIX IV SCH (05:59)
[2018-05-03] MEDS: CLINDAMYCIN INJ 300 MG in PREMIX 1 EACH IV SCH ×2 (06:00→14:39)
[2018-05-03] MEDS: HEPARIN 5,000 UNIT/1 ML VIAL SUBCUT SCH ×2 (06:00→17:24)
[2018-05-03 06:21] LABS: Basophils % 0.5 % (0.0-0.8); Eosinophils # 0.2 10*3/uL (0.0-0.87); Eosinophils % 2.5 % (0.00-10.9); Hematocrit 26.8 VOL% (35.7-47.0); Hemoglobin 8.4 GM/DL (12.0-16.0); Immature Granulocytes % 0.8 %; Immature Granulocytes Absolute 0.05 #; Lymphocytes # 1.3 10*3/uL (1.4-4.0); Lymphocytes % 21.5 % (21.3-54.2); Mean Corpuscular HGB Conc 31.3 GM/DL (32-36); Mean Corpuscular Hemoglobin 28 PG (27-34); Mean Corpuscular Volume 88.4 FL (87-102); Mean Platelet Volume 11.5 FL (9.6-12.0); Monocytes # 0.4 10*3/uL (0.11-0.8); Monocytes % 6.8 % (1.7-12.7); Neutrophils # 4.1 10*3/uL (1.4-7.4); Neutrophils % 67.9 % (38.7-73.9); Red Blood Count 3.03 MC/CUMM (3.8-5.5); Red Cell Distribution Width 15.7 % (9.3-17.3)
[2018-05-03 06:25] LABS: Calcium 7.6 MG/DL (8.5-10.1); Osmolality,Calculated 278.8 MOS/KG (273-304); Potassium 3.5 MMOL/L (3.5-5.1)
[2018-05-03 06:26] LABS: Platelet Count 99 T/CUMM (130-400)
[2018-05-03 07:31] LABS: Hypochromasia 1+; Microcytosis Slight
[2018-05-03 07:32] LABS: Platelet Estimate Decreased
[2018-05-03] MEDS: INSULIN REGULAR 100 UNIT/ML SUBCUT SCH ×4 (07:48→20:24)
[2018-05-03] MEDS: AMIODARONE 200 MG TABLET PO SCH ×2 (09:17→20:24)
[2018-05-03] MEDS: MIDODRINE 5 MG TABLET PO SCH ×3 (09:17→20:23)
[2018-05-03] MEDS: ZINC OXIDE PASTE 113 GM TUBE TOP SCH ×2 (09:18→20:24)
[2018-05-03] MEDS: PANTOPRAZOLE 40 MG VIAL IV SCH (13:53)
[2018-05-03] MEDS: ACETAMINOPHEN 325 MG TABLET PO PRN (14:43)
[2018-05-03] MEDS: NOREPINEPHRINE 16 MG in SODIUM CHLORIDE 0.9% 234 ML IV PRN (18:39)
[2018-05-03] MEDS: MORPHINE 4 MG/1 ML VIAL IV PRN (20:23)
[2018-05-04] MEDS: CLINDAMYCIN INJ 300 MG in PREMIX 1 EACH IV SCH ×3 (01:14→13:25)
[2018-05-04 04:16] LABS: Apearance,Urine CLOUDY (Clear); Bacteria,Urine Many /HPF (Few); Bilirubin,Urine Negative (Negative); Blood, Urine Moderate mg/dL (Negative); Glucose,Urine (UA) Negative (Negative); Ketones,Urine Negative (Negative); Nitrite,Urine Negative (Negative); Protein,Urine 100 MG/DL; RBC,Urine 45 /HPF (0-4); Urine Specific Gravity 1.006 (1.001-1.035); Urine Urobilinogen < 2.0 EU/DL (0.2-1.0); WBC,Urine 578 /HPF (0-6)
[2018-05-04 04:17] LABS: Urine Color LT. BROWN (Yellow)
[2018-05-04 05:23] LABS: Basophils % 0.7 % (0.0-0.8); Eosinophils # 0.1 10*3/uL (0.0-0.87); Eosinophils % 1.9 % (0.00-10.9); Hematocrit 27.1 VOL% (35.7-47.0); Hemoglobin 8.4 GM/DL (12.0-16.0); Immature Granulocytes % 0.7 %; Immature Granulocytes Absolute 0.04 #; Lymphocytes # 1.3 10*3/uL (1.4-4.0); Lymphocytes % 21.9 % (21.3-54.2); Mean Corpuscular Hemoglobin 27 PG (27-34); Mean Corpuscular Volume 86.9 FL (87-102); Monocytes # 0.4 10*3/uL (0.11-0.8); Monocytes % 6.8 % (1.7-12.7); Neutrophils # 3.9 10*3/uL (1.4-7.4); Red Blood Count 3.12 MC/CUMM (3.8-5.5); Red Cell Distribution Width 15.9 % (9.3-17.3); White Blood Count 5.8 T/CUMM (4-12)
[2018-05-04] MEDS: dilTIAZem Drip 125 MG/125 ML PREMIX IV SCH (05:24)
[2018-05-04] MEDS: HEPARIN 5,000 UNIT/1 ML VIAL SUBCUT SCH ×2 (05:24→15:32)
[2018-05-04 05:25] LABS: Platelet Count 93 T/CUMM (130-400)
[2018-05-04 05:39] LABS: Calcium 7.4 MG/DL (8.5-10.1)
[2018-05-04 05:40] LABS: Osmolality,Calculated 277.1 MOS/KG (273-304); Potassium 3.7 MMOL/L (3.5-5.1)
[2018-05-04 05:41] LABS: Hypochromasia 1+; Microcytosis Slight; Ovalocytes Slight; Platelet Estimate Decreased
[2018-05-04] MEDS: INSULIN REGULAR 100 UNIT/ML SUBCUT SCH ×4 (07:46→20:50)
[2018-05-04] MEDS: AMIODARONE 200 MG TABLET PO SCH ×2 (08:49→20:39)
[2018-05-04] MEDS: MIDODRINE 5 MG TABLET PO SCH ×3 (08:49→20:39)
[2018-05-04] MEDS: ZINC OXIDE PASTE 113 GM TUBE TOP SCH ×2 (08:50→20:39)
[2018-05-04] MEDS: PANTOPRAZOLE 40 MG VIAL IV SCH (12:43)
[2018-05-04] MEDS: AMPICILLIN/SULBACTAM 1,500 MG in SODIUM CHLORIDE 0.9% 100 ML IV SCH (15:20)
[2018-05-04] MEDS: NOREPINEPHRINE 16 MG in SODIUM CHLORIDE 0.9% 234 ML IV PRN (16:35)
[2018-05-04] MEDS ORDERED: fentaNYL 100 MCG/2 ML VIAL ONE (16:50)
[2018-05-04] MEDS ORDERED: ONDANSETRON 4 MG/2 ML VIAL ONE (16:50)
[2018-05-04] MEDS ORDERED: DEXAMETHASONE 10 MG/1 ML VIAL ONE (16:50)
[2018-05-04] MEDS ORDERED: MIDAZOLAM 2 MG/2 ML VIAL ONE (16:50)
[2018-05-04] MEDS ORDERED: PROPOFOL 200 MG/20 ML VIAL IV ONE (16:50)
[2018-05-04] MEDS ORDERED: KETOROLAC 30 MG/1 ML VIAL ONE (16:50)
[2018-05-04] MEDS ORDERED: ETOMIDATE 40 MG/20 ML VIAL IV ONE (16:50)
[2018-05-04] MEDS ORDERED: SEVOFLURANE 1 UNIT/15 MINUTE INH ONE (16:50)
[2018-05-04] MEDS ORDERED: PHENYLEPHRINE 1 MG/10 ML SYRINGE IV ONE (16:51)
[2018-05-04] MEDS: MORPHINE 4 MG/1 ML VIAL IV PRN (23:45)
[2018-05-05] MEDS: dilTIAZem Drip 125 MG/125 ML PREMIX IV SCH (01:45)
[2018-05-05 02:05] LABS: Basophils % 0.3 % (0.0-0.8); Hematocrit 27.9 VOL% (35.7-47.0); Hemoglobin 8.5 GM/DL (12.0-16.0); Immature Granulocytes % 1.6 %; Lymphocytes # 0.8 10*3/uL (1.4-4.0); Lymphocytes % 13.6 % (21.3-54.2); Mean Corpuscular HGB Conc 30.5 GM/DL (32-36); Mean Corpuscular Hemoglobin 27 PG (27-34); Mean Platelet Volume 11.8 FL (9.6-12.0); Monocytes # 0.1 10*3/uL (0.11-0.8); Monocytes % 1.3 % (1.7-12.7); Neutrophils # 5.1 10*3/uL (1.4-7.4); Neutrophils % 83.2 % (38.7-73.9); Platelet Count 128 T/CUMM (130-400); Red Blood Count 3.17 MC/CUMM (3.8-5.5); Red Cell Distribution Width 15.9 % (9.3-17.3); White Blood Count 6.2 T/CUMM (4-12)
[2018-05-05] MEDS: AMPICILLIN/SULBACTAM 1,500 MG in SODIUM CHLORIDE 0.9% 100 ML IV SCH ×2 (02:07→14:39)
[2018-05-05 03:02] LABS: Calcium 7.3 MG/DL (8.5-10.1); Osmolality,Calculated 281.4 MOS/KG (273-304); Potassium 4.8 MMOL/L (3.5-5.1)
[2018-05-05] MEDS: HEPARIN 5,000 UNIT/1 ML VIAL SUBCUT SCH ×2 (04:56→16:44)
[2018-05-05] MEDS: INSULIN REGULAR 100 UNIT/ML SUBCUT SCH ×4 (08:24→21:50)
[2018-05-05] MEDS: ZINC OXIDE PASTE 113 GM TUBE TOP SCH ×2 (08:25→22:46)
[2018-05-05] MEDS: MIDODRINE 5 MG TABLET PO SCH ×3 (08:25→21:50)
[2018-05-05] MEDS: AMIODARONE 200 MG TABLET PO SCH ×2 (08:25→21:50)
[2018-05-05] MEDS: PANTOPRAZOLE 40 MG VIAL IV SCH (12:20)
[2018-05-05] MEDS: MORPHINE 4 MG/1 ML VIAL IV PRN (23:20)
[2018-05-06] MEDS: dilTIAZem Drip 125 MG/125 ML PREMIX IV SCH (02:17)
[2018-05-06] MEDS: AMPICILLIN/SULBACTAM 1,500 MG in SODIUM CHLORIDE 0.9% 100 ML IV SCH ×2 (02:30→16:43)
[2018-05-06] MEDS: MORPHINE 4 MG/1 ML VIAL IV PRN ×2 (04:45→20:38)
[2018-05-06] MEDS: HEPARIN 5,000 UNIT/1 ML VIAL SUBCUT SCH ×2 (04:49→15:02)
[2018-05-06 05:15] LABS: Eosinophils % 0.6 % (0.00-10.9); Hematocrit 25.7 VOL% (35.7-47.0); Immature Granulocytes % 2.9 %; Lymphocytes # 1.7 10*3/uL (1.4-4.0); Lymphocytes % 24.9 % (21.3-54.2); Mean Corpuscular HGB Conc 30.4 GM/DL (32-36); Mean Corpuscular Hemoglobin 27 PG (27-34); Mean Corpuscular Volume 88.9 FL (87-102); Mean Platelet Volume 11.4 FL (9.6-12.0); Monocytes # 0.4 10*3/uL (0.11-0.8); Monocytes % 5.3 % (1.7-12.7); Neutrophils # 4.5 10*3/uL (1.4-7.4); Neutrophils % 66.3 % (38.7-73.9); Red Blood Count 2.89 MC/CUMM (3.8-5.5); White Blood Count 6.8 T/CUMM (4-12)
[2018-05-06 05:16] LABS: Hemoglobin 7.8 GM/DL (12.0-16.0); Platelet Count 174 T/CUMM (130-400)
[2018-05-06 05:23] LABS: Calcium 7.3 MG/DL (8.5-10.1); Osmolality,Calculated 280.8 MOS/KG (273-304); Potassium 3.8 MMOL/L (3.5-5.1)
[2018-05-06] MEDS: INSULIN REGULAR 100 UNIT/ML SUBCUT SCH ×4 (07:42→20:37)
[2018-05-06] MEDS: AMIODARONE 200 MG TABLET PO SCH ×2 (08:11→20:37)
[2018-05-06] MEDS: MIDODRINE 5 MG TABLET PO SCH ×3 (08:11→20:37)
[2018-05-06] MEDS: ZINC OXIDE PASTE 113 GM TUBE TOP SCH ×2 (08:15→20:36)
[2018-05-06] MEDS ORDERED: SODIUM CHLORIDE 0.9% 1,000 ML IV PRN (09:30)
[2018-05-06] MEDS ORDERED: LIDOCAINE 1%/EPI INJ 20 ML VIAL ONE (11:25)
[2018-05-06] MEDS ORDERED: BACITRACIN OINT 0.9 GM PACK TOP ONE (11:59)
[2018-05-06] MEDS ORDERED: MIDAZOLAM 2 MG/2 ML VIAL ONE (13:16)
[2018-05-06] MEDS ORDERED: PROPOFOL 200 MG/20 ML VIAL IV ONE (13:17)
[2018-05-06] MEDS ORDERED: fentaNYL 100 MCG/2 ML VIAL ONE (13:17)
[2018-05-06] MEDS: PANTOPRAZOLE 40 MG VIAL IV SCH (16:43)
[2018-05-06] MEDS: DESITIN 4OZ/NYSTATIN 15 GRAM MIXTURE PASTE TOP SCH (20:38)
[2018-05-07] MEDS: AMPICILLIN/SULBACTAM 1,500 MG in SODIUM CHLORIDE 0.9% 100 ML IV SCH ×2 (03:07→14:38)
[2018-05-07] MEDS: HEPARIN 5,000 UNIT/1 ML VIAL SUBCUT SCH ×2 (03:40→17:40)
[2018-05-07] MEDS: dilTIAZem Drip 125 MG/125 ML PREMIX IV SCH (05:00)
[2018-05-07] MEDS: INSULIN REGULAR 100 UNIT/ML SUBCUT SCH ×4 (07:54→22:07)
[2018-05-07] MEDS: MIDODRINE 5 MG TABLET PO SCH ×3 (09:25→20:35)
[2018-05-07] MEDS: AMIODARONE 200 MG TABLET PO SCH ×2 (09:25→20:36)
[2018-05-07] MEDS: ZINC OXIDE PASTE 113 GM TUBE TOP SCH ×2 (09:26→20:36)
[2018-05-07] MEDS: DESITIN 4OZ/NYSTATIN 15 GRAM MIXTURE PASTE TOP SCH ×2 (09:26→20:36)
[2018-05-07] MEDS: PANTOPRAZOLE 40 MG TABLET PO SCH (13:42)
[2018-05-07] MEDS: SODIUM CHLORIDE 0.9% 1,000 ML IV SCH (17:40)
[2018-05-07] MEDS: MORPHINE 4 MG/1 ML VIAL IV PRN (18:52)
[2018-05-08] MEDS: dilTIAZem Drip 125 MG/125 ML PREMIX IV SCH (01:59)
[2018-05-08] MEDS: AMPICILLIN/SULBACTAM 1,500 MG in SODIUM CHLORIDE 0.9% 100 ML IV SCH ×2 (03:01→15:09)
[2018-05-08] MEDS: HEPARIN 5,000 UNIT/1 ML VIAL SUBCUT SCH ×2 (05:15→17:17)
[2018-05-08 05:48] LABS: Basophils % 0.6 % (0.0-0.8); Eosinophils # 0.2 10*3/uL (0.0-0.87); Eosinophils % 3.7 % (0.00-10.9); Hematocrit 26.9 VOL% (35.7-47.0); Hemoglobin 8.1 GM/DL (12.0-16.0); Immature Granulocytes % 2.8 %; Immature Granulocytes Absolute 0.15 #; Lymphocytes # 1.8 10*3/uL (1.4-4.0); Lymphocytes % 32.7 % (21.3-54.2); Mean Corpuscular HGB Conc 30.1 GM/DL (32-36); Mean Corpuscular Hemoglobin 27 PG (27-34); Mean Corpuscular Volume 90.3 FL (87-102); Mean Platelet Volume 10.5 FL (9.6-12.0); Monocytes # 0.4 10*3/uL (0.11-0.8); Monocytes % 7.8 % (1.7-12.7); Neutrophils # 2.8 10*3/uL (1.4-7.4); Neutrophils % 52.4 % (38.7-73.9); Platelet Count 153 T/CUMM (130-400); Red Blood Count 2.98 MC/CUMM (3.8-5.5); White Blood Count 5.4 T/CUMM (4-12)
[2018-05-08 06:01] LABS: Osmolality,Calculated 278.5 MOS/KG (273-304); Potassium 3.9 MMOL/L (3.5-5.1)
[2018-05-08] MEDS: INSULIN REGULAR 100 UNIT/ML SUBCUT SCH ×4 (08:48→20:20)
[2018-05-08] MEDS ORDERED: PROPOFOL 200 MG/20 ML VIAL IV ONE (08:58)
[2018-05-08] MEDS ORDERED: ETOMIDATE 40 MG/20 ML VIAL IV ONE (08:59)
[2018-05-08] MEDS: AMIODARONE 200 MG TABLET PO SCH ×2 (10:29→20:26)
[2018-05-08] MEDS: MIDODRINE 5 MG TABLET PO SCH ×3 (10:29→20:26)
[2018-05-08] MEDS: PANTOPRAZOLE 40 MG TABLET PO SCH (10:29)
[2018-05-08] MEDS: DESITIN 4OZ/NYSTATIN 15 GRAM MIXTURE PASTE TOP SCH ×2 (10:30→20:27)
[2018-05-08] MEDS: ZINC OXIDE PASTE 113 GM TUBE TOP SCH ×2 (10:37→20:26)
[2018-05-08] MEDS: SODIUM CHLORIDE 0.9% 1,000 ML IV SCH (20:21)
[2018-05-09] MEDS: dilTIAZem Drip 125 MG/125 ML PREMIX IV SCH (02:08)
[2018-05-09] MEDS: AMPICILLIN/SULBACTAM 1,500 MG in SODIUM CHLORIDE 0.9% 100 ML IV SCH ×3 (02:52→15:39)
[2018-05-09 04:21] LABS: Basophils % 0.8 % (0.0-0.8); Eosinophils # 0.2 10*3/uL (0.0-0.87); Eosinophils % 3.4 % (0.00-10.9); Hematocrit 26.7 VOL% (35.7-47.0); Hemoglobin 7.9 GM/DL (12.0-16.0); Immature Granulocytes % 2.4 %; Immature Granulocytes Absolute 0.12 #; Lymphocytes # 1.5 10*3/uL (1.4-4.0); Lymphocytes % 30.8 % (21.3-54.2); Mean Corpuscular HGB Conc 29.6 GM/DL (32-36); Mean Corpuscular Hemoglobin 27 PG (27-34); Mean Corpuscular Volume 91.4 FL (87-102); Mean Platelet Volume 10.6 FL (9.6-12.0); Monocytes # 0.4 10*3/uL (0.11-0.8); Monocytes % 7.3 % (1.7-12.7); Neutrophils # 2.7 10*3/uL (1.4-7.4); Neutrophils % 55.3 % (38.7-73.9); Platelet Count 146 T/CUMM (130-400); Red Blood Count 2.92 MC/CUMM (3.8-5.5); Red Cell Distribution Width 15.9 % (9.3-17.3); White Blood Count 4.9 T/CUMM (4-12)
[2018-05-09 04:35] LABS: Calcium 7.3 MG/DL (8.5-10.1); Osmolality,Calculated 279.5 MOS/KG (273-304); Potassium 4.3 MMOL/L (3.5-5.1)
[2018-05-09] MEDS: HEPARIN 5,000 UNIT/1 ML VIAL SUBCUT SCH ×2 (04:46→17:43)
[2018-05-09] MEDS: INSULIN REGULAR 100 UNIT/ML SUBCUT SCH ×4 (08:50→20:41)
[2018-05-09] MEDS: PANTOPRAZOLE 40 MG TABLET PO SCH (09:37)
[2018-05-09] MEDS: ZINC OXIDE PASTE 113 GM TUBE TOP SCH ×2 (09:37→20:41)
[2018-05-09] MEDS: DESITIN 4OZ/NYSTATIN 15 GRAM MIXTURE PASTE TOP SCH ×2 (09:37→20:41)
[2018-05-09] MEDS: MIDODRINE 5 MG TABLET PO SCH ×3 (09:37→20:41)
[2018-05-09] MEDS: AMIODARONE 200 MG TABLET PO SCH ×2 (09:37→20:41)
[2018-05-09] MEDS: SODIUM CHLORIDE 0.9% 1,000 ML IV SCH (19:51)
[2018-05-10] MEDS: dilTIAZem Drip 125 MG/125 ML PREMIX IV SCH (02:17)
[2018-05-10] MEDS: AMPICILLIN/SULBACTAM 1,500 MG in SODIUM CHLORIDE 0.9% 100 ML IV SCH ×2 (03:11→14:51)
[2018-05-10 04:59] LABS: Basophils % 0.7 % (0.0-0.8); Eosinophils # 0.2 10*3/uL (0.0-0.87); Eosinophils % 3.8 % (0.00-10.9); Hematocrit 29.3 VOL% (35.7-47.0); Hemoglobin 8.6 GM/DL (12.0-16.0); Immature Granulocytes % 1.8 %; Lymphocytes % 18.7 % (21.3-54.2); Mean Corpuscular HGB Conc 29.4 GM/DL (32-36); Mean Corpuscular Hemoglobin 27 PG (27-34); Mean Corpuscular Volume 90.4 FL (87-102); Mean Platelet Volume 10.9 FL (9.6-12.0); Monocytes # 0.3 10*3/uL (0.11-0.8); Neutrophils # 3.9 10*3/uL (1.4-7.4); Platelet Count 140 T/CUMM (130-400); Red Blood Count 3.24 MC/CUMM (3.8-5.5); Red Cell Distribution Width 15.6 % (9.3-17.3); White Blood Count 5.6 T/CUMM (4-12)
[2018-05-10 05:23] LABS: Calcium 7.2 MG/DL (8.5-10.1); Osmolality,Calculated 279.7 MOS/KG (273-304); Potassium 4.4 MMOL/L (3.5-5.1)
[2018-05-10] MEDS: HEPARIN 5,000 UNIT/1 ML VIAL SUBCUT SCH ×2 (06:09→17:59)
[2018-05-10 06:25] LABS: Hypochromasia Slight; Platelet Estimate Normal; Polychromasia Few
[2018-05-10] MEDS: INSULIN REGULAR 100 UNIT/ML SUBCUT SCH ×4 (09:20→21:37)
[2018-05-10] MEDS: MIDODRINE 5 MG TABLET PO SCH ×3 (09:21→21:40)
[2018-05-10] MEDS: ZINC OXIDE PASTE 113 GM TUBE TOP SCH ×2 (09:21→21:37)
[2018-05-10] MEDS: PANTOPRAZOLE 40 MG TABLET PO SCH (09:22)
[2018-05-10] MEDS: AMIODARONE 200 MG TABLET PO SCH (09:22)
[2018-05-10] MEDS: DESITIN 4OZ/NYSTATIN 15 GRAM MIXTURE PASTE TOP SCH ×2 (09:26→21:40)
[2018-05-10] MEDS: amLODIPine 10 MG TABLET PO SCH (09:26)
[2018-05-10] MEDS: ACETAMINOPHEN 325 MG TABLET PO PRN (14:57)
[2018-05-11] MEDS: dilTIAZem Drip 125 MG/125 ML PREMIX IV SCH (02:37)
[2018-05-11] MEDS: AMPICILLIN/SULBACTAM 1,500 MG in SODIUM CHLORIDE 0.9% 100 ML IV SCH ×2 (02:37→18:23)
[2018-05-11] MEDS: SODIUM CHLORIDE 0.9% 1,000 ML IV SCH ×2 (04:49→18:34)
[2018-05-11 04:50] LABS: Basophils % 0.6 % (0.0-0.8); Eosinophils # 0.1 10*3/uL (0.0-0.87); Eosinophils % 1.9 % (0.00-10.9); Hematocrit 25.7 VOL% (35.7-47.0); Hemoglobin 7.9 GM/DL (12.0-16.0); Immature Granulocytes % 1.9 %; Immature Granulocytes Absolute 0.09 #; Lymphocytes # 1.1 10*3/uL (1.4-4.0); Lymphocytes % 24.5 % (21.3-54.2); Mean Corpuscular HGB Conc 30.7 GM/DL (32-36); Mean Corpuscular Hemoglobin 27 PG (27-34); Mean Corpuscular Volume 87.7 FL (87-102); Mean Platelet Volume 10.3 FL (9.6-12.0); Monocytes # 0.3 10*3/uL (0.11-0.8); Monocytes % 6.5 % (1.7-12.7); Neutrophils % 64.6 % (38.7-73.9); Platelet Count 144 T/CUMM (130-400); Red Blood Count 2.93 MC/CUMM (3.8-5.5); Red Cell Distribution Width 15.8 % (9.3-17.3); White Blood Count 4.6 T/CUMM (4-12)
[2018-05-11 05:13] LABS: Potassium 4.7 MMOL/L (3.5-5.1)
[2018-05-11] MEDS ORDERED: DEXTROSE 50% 25 GM/50 ML SYRINGE IV PRN (06:30)
[2018-05-11] MEDS: HEPARIN 5,000 UNIT/1 ML VIAL SUBCUT SCH ×2 (06:56→18:40)
[2018-05-11] MEDS: INSULIN REGULAR 100 UNIT/ML SUBCUT SCH ×4 (08:00→21:49)
[2018-05-11] MEDS: DESITIN 4OZ/NYSTATIN 15 GRAM MIXTURE PASTE TOP SCH ×2 (09:15→21:49)
[2018-05-11] MEDS ORDERED: LIDOCAINE 1%/EPI INJ 20 ML VIAL ONE ×2 (10:24→14:33)
[2018-05-11] MEDS ORDERED: BUPIVACAINE MPF 0.25% 30 ML VIAL ONE ×2 (10:24→14:33)
[2018-05-11] MEDS ORDERED: HEPARIN 5,000 UNIT/1 ML VIAL ONE ×2 (10:24→14:29)
[2018-05-11] MEDS ORDERED: HEPARIN 1,000 UNIT/1 ML VIAL ONE (12:34)
[2018-05-11] MEDS ORDERED: SEVOFLURANE 1 UNIT/15 MINUTE INH ONE (14:01)
[2018-05-11] MEDS ORDERED: PROPOFOL 200 MG/20 ML VIAL IV ONE ×2 (14:01→17:21)
[2018-05-11] MEDS ORDERED: MIDAZOLAM 2 MG/2 ML VIAL ONE (14:02)
[2018-05-11] MEDS ORDERED: fentaNYL 100 MCG/2 ML VIAL ONE (14:02)
[2018-05-11] MEDS ORDERED: GLYCOPYRROLATE 0.4 MG/2 ML VIAL ONE ×2 (14:02)
[2018-05-11] MEDS ORDERED: ETOMIDATE 40 MG/20 ML VIAL IV ONE (14:02)
[2018-05-11] MEDS ORDERED: ONDANSETRON 4 MG/2 ML VIAL ONE (14:02)
[2018-05-11] MEDS ORDERED: PHENYLEPHRINE 1 MG/10 ML SYRINGE IV ONE (14:02)
[2018-05-11] MEDS ORDERED: ROCURONIUM 100 MG/10 ML VIAL IV ONE (14:03)
[2018-05-11] MEDS ORDERED: SODIUM CHLORIDE 0.9% 500 ML IV ONE (14:03)
[2018-05-11] MEDS ORDERED: NEOSTIGMINE 10 MG/10 ML VIAL ONE (14:03)
[2018-05-11] MEDS ORDERED: HYDROmorphone 2 MG/1 ML VIAL ONE (14:05)
[2018-05-11] MEDS: HYDROmorphone 2 MG/1 ML VIAL IV PRN ×2 (14:07→14:40)
[2018-05-11] MEDS: AMIODARONE 200 MG TABLET PO SCH (15:53)
[2018-05-11] MEDS: ZINC OXIDE PASTE 113 GM TUBE TOP SCH ×2 (15:53→21:49)
[2018-05-11] MEDS: MIDODRINE 5 MG TABLET PO SCH ×3 (15:53→21:49)
[2018-05-11] MEDS: PANTOPRAZOLE 40 MG TABLET PO SCH (15:54)
[2018-05-11] MEDS: amLODIPine 10 MG TABLET PO SCH (15:54)
[2018-05-11 18:06] LABS: Apearance,Urine CLOUDY (Clear); Bilirubin,Urine Negative (Negative); Blood, Urine Large mg/dL (Negative); Glucose,Urine (UA) Negative (Negative); Ketones,Urine Negative (Negative); Mucus,Urine Occasional /LPF (Occasional); Nitrite,Urine Negative (Negative); Protein,Urine 30 MG/DL; RBC,Urine 533 /HPF (0-4); Squamous Epithelial Cell,Urine Occasional /HPF (0-10); Urine Color Yellow (Yellow); Urine Specific Gravity 1.006 (1.001-1.035); Urine Urobilinogen < 2.0 EU/DL (0.2-1.0); WBC,Urine 388 /HPF (0-6)
[2018-05-11] MEDS: MORPHINE 4 MG/1 ML VIAL IV PRN (18:19)
[2018-05-11] MEDS ORDERED: HYDROmorphone 2 MG/1 ML VIAL IV ONE (20:03)
[2018-05-11 20:42] LABS: Basophils % 0.4 % (0.0-0.8); Eosinophils # 0.1 10*3/uL (0.0-0.87); Eosinophils % 1.1 % (0.00-10.9); Hematocrit 21.7 VOL% (35.7-47.0); Hemoglobin 6.5 GM/DL (12.0-16.0); Immature Granulocytes % 1.4 %; Lymphocytes # 1.4 10*3/uL (1.4-4.0); Lymphocytes % 19.1 % (21.3-54.2); Mean Corpuscular Hemoglobin 27 PG (27-34); Mean Corpuscular Volume 89.3 FL (87-102); Mean Platelet Volume 10.7 FL (9.6-12.0); Monocytes # 0.5 10*3/uL (0.11-0.8); Monocytes % 6.2 % (1.7-12.7); Neutrophils # 5.2 10*3/uL (1.4-7.4); Neutrophils % 71.8 % (38.7-73.9); Platelet Count 123 T/CUMM (130-400); Red Blood Count 2.43 MC/CUMM (3.8-5.5); Red Cell Distribution Width 15.9 % (9.3-17.3); White Blood Count 7.3 T/CUMM (4-12)
[2018-05-12] MEDS: AMPICILLIN/SULBACTAM 1,500 MG in SODIUM CHLORIDE 0.9% 100 ML IV SCH ×2 (02:42→14:00)
[2018-05-12 05:55] LABS: Basophils % 0.5 % (0.0-0.8); Eosinophils # 0.1 10*3/uL (0.0-0.87); Eosinophils % 1.1 % (0.00-10.9); Hematocrit 20.3 VOL% (35.7-47.0); Immature Granulocytes % 0.6 %; Immature Granulocytes Absolute 0.04 #; Lymphocytes # 1.1 10*3/uL (1.4-4.0); Lymphocytes % 18.1 % (21.3-54.2); Mean Corpuscular Hemoglobin 27 PG (27-34); Mean Platelet Volume 11.4 FL (9.6-12.0); Monocytes # 0.4 10*3/uL (0.11-0.8); Neutrophils # 4.6 10*3/uL (1.4-7.4); Neutrophils % 73.7 % (38.7-73.9); Platelet Count 110 T/CUMM (130-400); Red Blood Count 2.28 MC/CUMM (3.8-5.5); Red Cell Distribution Width 15.9 % (9.3-17.3); White Blood Count 6.2 T/CUMM (4-12)
[2018-05-12 06:22] LABS: Osmolality,Calculated 281.8 MOS/KG (273-304)
[2018-05-12] MEDS: dilTIAZem Drip 125 MG/125 ML PREMIX IV SCH (06:27)
[2018-05-12 06:35] LABS: Hemoglobin 6.1 GM/DL (12.0-16.0)
[2018-05-12] MEDS ORDERED: SODIUM CHLORIDE 0.9% 1,000 ML IV PRN (06:39)
[2018-05-12] MEDS: HEPARIN 5,000 UNIT/1 ML VIAL SUBCUT SCH (06:59)
[2018-05-12] MEDS: MORPHINE 4 MG/1 ML VIAL IV PRN (08:18)
[2018-05-12] MEDS: INSULIN REGULAR 100 UNIT/ML SUBCUT SCH ×2 (08:26→12:03)
[2018-05-12] MEDS ORDERED: HYDROmorphone 2 MG/1 ML VIAL IV PRN (09:17)
[2018-05-12] MEDS: ZINC OXIDE PASTE 113 GM TUBE TOP SCH (10:00)
[2018-05-12] MEDS: DESITIN 4OZ/NYSTATIN 15 GRAM MIXTURE PASTE TOP SCH (10:00)
[2018-05-12] MEDS: amLODIPine 10 MG TABLET PO SCH (10:14)
[2018-05-12] MEDS: MIDODRINE 5 MG TABLET PO SCH (10:16)
[2018-05-12] MEDS: AMIODARONE 200 MG TABLET PO SCH (10:16)
[2018-05-12] MEDS: PANTOPRAZOLE 40 MG TABLET PO SCH (10:33)
[2018-05-12] MEDS ORDERED: KETOROLAC 30 MG/1 ML VIAL IV ONE (13:38)
[2018-05-12 16:33] VITALS: BP 131/70
== END 2018-05-12 15:25 | DRG 853 ==
LOC: EDBD → EDUNIT# → N.ED 10:14 → N.EDINP 12:58 → SUATTDRO 12:59 → N.CC 13:16
PROVIDERS: ADMIT Internal Medicine Geriatric Medicine; ATTEND Family Medicine